=== PATIENT | male | born 1985 | race Caucasian/White ===

== ENCOUNTER 2018-06-02 01:15 | Emergency (ER) | payer BC, SELFPAY ==
[2018-06-02 01:17] VITALS: BP 160/106; PULSE 107; RESP 18; TEMP 37.5; O2SAT 98; BMI 35.3
[2018-06-02] MEDS: Acetaminophen 500 MG Tablet 1000 MG PO (02:26)
--- NOTE | 2018-06-02 02:28 | ED.VISSUMM ---
- ER Visit Summary Date of Service: 06/02/18 Chief Complaint: Sore throat History of Present Illness: The patient is a 33 M presenting with sore throat, body aches. This started earlier today. He has tried NyQuil, Tylenol at home. He complains of painful swallowing but no difficulty swallowing. He complains of diffuse body aches. He has had a subjective fever. He has nausea with no vomiting. He denies abdominal pain. He did not receive a flu shot this year. No sick contacts. Physical Examination: Vitals are stable. Temperature 99.5 Alert no acute distress. HEENT exam pharyngeal erythema with no exudate. Uvula is midline. Neck is supple. No meningismus Lungs are clear and equal bilaterally. Heart is regular and tachycardic Abdomen is soft nontender nondistended. No rebound or guarding Extremities are unremarkable. Skin is warm and dry. No rash Remainder of exam is unremarkable. Emergency Department Course and Treatment: Patient is given IV fluids, Toradol, Zofran. He is given Tylenol and Decadron. Rapid strep is positive. Influenza negative. Patient was given Bicillin IM. On reevaluation patient is feeling improved. He is requesting discharge. Advised to follow-up with Dr. Dee [facility] for no doc. Advised return to ED for worsening complaints. Disposition: Discharge home Impression: Strep pharyngitis This note was generated with [employer] dictation software. It may contain incorrect words, spelling, and punctuation that were not noted in review of the chart prior to signing ED Disposition - Plan for ED Patient: Chief Complaint: Sore Throat Instructions: ED Strep Pharyngitis Conf Referrals: Ashley Dee DO [STAFF PHYSICIAN] -
[2018-06-02] MEDS: 0.9% Normal Saline 1,000 ML 1000 ML IV ×2 (02:30)
[2018-06-02] MEDS: Ketorolac 30 MG/ML Syringe IV (02:30)
[2018-06-02] MEDS: Ondansetron 4 MG/2 ML Vial IV (02:31)
--- NOTE | 2018-06-02 02:31 | ED.DCSUM_ITS ---
- ER Visit Summary Date of Service: 06/02/18 Chief Complaint: Sore throat History of Present Illness: The patient is a 33 M presenting with sore throat, body aches. This started earlier today. He has tried NyQuil, Tylenol at home. He complains of painful swallowing but no difficulty swallowing. He complains of diffuse body aches. He has had a subjective fever. He has nausea with no vomiting. He denies abdominal pain. He did not receive a flu shot this year. No sick contacts. Physical Examination: Vitals are stable. Temperature 99.5 Alert no acute distress. HEENT exam pharyngeal erythema with no exudate. Uvula is midline. Neck is supple. No meningismus Lungs are clear and equal bilaterally. Heart is regular and tachycardic Abdomen is soft nontender nondistended. No rebound or guarding Extremities are unremarkable. Skin is warm and dry. No rash Remainder of exam is unremarkable. Emergency Department Course and Treatment: Patient is given IV fluids, Toradol, Zofran. He is given Tylenol and Decadron. Rapid strep is positive. Influenza negative. Patient was given Bicillin IM. On reevaluation patient is feeling improved. He is requesting discharge. Advised to follow-up with Dr. Dee [employer] [facility] for no doc. Advised return to ED for worsening complaints. Disposition: Discharge home Impression: Strep pharyngitis This note was generated with [employer] dictation software. It may contain incorrect words, spelling, and punctuation that were not noted in review of the chart prior to signing ED Disposition - Plan for ED Patient: Chief Complaint: Sore Throat Instructions: ED Strep Pharyngitis Conf Referrals: Ashley Dee DO [STAFF PHYSICIAN] -
[2018-06-02] MEDS: Penicillin G Benzathine 1.2 MU/2 ML Syringe IM (02:55)
[2018-06-02 03:15] VITALS: BP 131/75; PULSE 102; RESP 18; TEMP 37.3; O2SAT 94
--- NOTE | 2018-06-02 03:35 | ED.DEP ---
ED Disposition - Plan for ED Patient: Chief Complaint: Sore Throat Instructions: ED Strep Pharyngitis Conf Referrals: Ashley Dee DO [STAFF PHYSICIAN] -
[2018-06-02 03:54] VITALS: BP 145/88; PULSE 104; RESP 18; O2SAT 95
== END 2018-06-02 03:55 | disposition home or self-care (01) ==
LOC: ED 02:13
PROVIDERS: Emergency Provider Emergency Medicine
DX: J02.0 Streptococcal pharyngitis (principal); R11.0 Nausea; R00.0 Tachycardia, unspecified; Z72.0 Tobacco use; Z79.899 Other long term (current) drug therapy
CPT/HCPCS: 87804; 87880; 96361; 96372; 96374; 96375; 99283; J7030; A4216; J2405

== ENCOUNTER 2018-11-04 16:31 | Inpatient (IN) | payer BC, SELFPAY ==
[2018-11-04] VITALS (7 sets, daily range): BP systolic 143–167; BP diastolic 92–112; PULSE 101–120; RESP 18–20; TEMP 37.3–38.3; O2SAT 94–99; BMI 35.2; BMI 35.6
[2018-11-04] MEDS: 0.9% Normal Saline 1,000 ML 999 ML IV (17:47)
[2018-11-04] MEDS: LORazepam 2 MG/ML Syringe 1 MG IV (17:47)
[2018-11-04 17:54] LABS: Absolute Lymphocyte Count 1.88 X10^3/ul (0.83-4.51); Absolute Neutrophil Count 5.8 X10^3/uL (2.0-7.7); Basophil# 0.02 X10^3/uL; Basophil% 0.2 % (0-1); Eosinophil# 0.02 X10^3/uL; Eosinophils% 0.2 % (0-5); Hematocrit 48.5 % (40-54); Hemoglobin 16.6 g/dl (13.0-16.5); Lymphocyte # 1.88 X10^3/ul (4.0); Lymphocyte % 21.8 % (19-41); Mean Corp Hgb Conc 34.2 g/gl (32-36); Mean Corpuscular Hgb 30.9 pg (27.0-32.0); Mean Corpuscular Volume 90.3 fL (80-94); Mean Platelet Vol. 10.3 fl (6.2-12.0); Monocyte# 0.85 X10^3/uL; Monocyte% 9.9 % (0-10); Neutrophil # 5.83 X10^3/uL (2.7-7.7); Neutrophil % 67.7 % (47-70); Platelet Count 229 K/mm3 (150-450); RBC Distribution Width CV 12.5 % (11.6-14.6); Red Blood Count 5.37 M/mm3 (4.6-6.2); White Blood Count 8.6 K/mm3 (4.4-11.0)
[2018-11-04 17:55] LABS: Lyme Ab Screen Interpretation REF LAB
[2018-11-04 17:57] LABS: POSITIVE COUNT NO; POSITIVE DIFFERENTIAL NO; POSITIVE MORPHOLOGY NO
[2018-11-04 18:03] LABS: Erythrocyte Sedimentation Rate 10 mm/hr (0-15)
[2018-11-04 18:08] LABS: Anion Gap 6 (5-15); BUN 14 mg/dL (7-18); BUN/Creat Ratio 14.2 RATIO (10-20); Calcium,Total 8.9 mg/dL (8.5-10.1); Chloride 105 mmol/L (98-107); Creatinine, Serum 0.98 mg/dL (0.70-1.30); EST Glomerular Filtration Rate 92 mL/min (>60); Est Glom Filt Rate - Afr Amer 111 mL/min (>60); Estimated Creatinine Clearance 105.21 ml/min; Glucose 85 mg/dL (74-106); Potassium 3.9 mmol/L (3.5-5.1); Sodium Level 139 mmol/L (136-145)
[2018-11-04 18:17] LABS: Bacteria 0 SEEN /hpf (None Seen); Color, Urine Yellow (Yellow); Glucose, Dipstick Normal (Normal); Ketone-Dipstick Negative (Negative); Leukocyte Esterase-Dipstick Negative /ul (Negative); Mucous, Urine 0 SEEN /hpf (<or=2+); Nitrite-Dipstick Negative (Negative); Occult Blood-Urine 25 /ul (Negative); Protein-Dipstick 15 mg/dl (Negative); Squamous Epithelial Cells - UA 0 SEEN /hpf (0-5); Urine Bilirubin Dipstick Negative (Negative); Urine Clarity Clear (Clear); Urine Urobilinogen Normal (Normal); White Blood Cells 0 SEEN /hpf (0-5)
[2018-11-04] MEDS: Morphine 4 MG/ML Syringe IV ×2 (18:21→21:11)
[2018-11-04 18:36] LABS: Red Blood Cells-Urine 0-5 SEEN /hpf (0-5)
[2018-11-04] MEDS: Acetaminophen 500 MG Tablet 1000 MG PO (19:35)
[2018-11-04] MEDS: Acyclovir 700 MG in Dextrose 5% 250 ML 264.1 MG IV (19:39)
--- NOTE | 2018-11-04 20:18 | PCM.HP.STD ---
Problem List (1) Sepsis Status: Acute (2) Meningitis Status: Suspected (3) Lyme disease Status: Suspected History of Present Illness Date of Admission: 11/04/18 Chief Complaint: Diffuse body pain The patient is a 33 year old M with a significant history of anxiety disorder who presents with diffuse body pain and unable to move because of weakness. He describes his pain as vise-like. Further he has a rash on his left arm and diffuse rash around his neck and upper trunk.. Reportedly he was bitten by 2 ticks 2 weeks ago but he thinks that the tick did not stay on him for more than 24 hours. Further patient reports a lump-like feeling and pain in his sternum reportedly he had a fever of about 101 at home. He has a headache. At the emergency department lumbar puncture was attempted at 2 times without success. Patient was empirically started on vancomycin and ceftriaxone for probable meningitis. Past Medical History Medical History: Medical History (Last Updated 11/05/18 @ 04:36 by Smooth Slaughter MD) Denies any medical history (Acute) Allergies No Known Allergies Allergy (Verified 11/04/18 16:33) Home Medications: Ambulatory Orders Medication Instructions Recorded ALPRAZolam [Xanax] 1 mg PO TID PRN PRN 03/25/13 Surgical History: appendectomy, herniorrhaphy Smoking Status: Former smoker Alcohol: Occasional Review of Systems Constitutional: Reports: Fever, Night Sweats, Malaise, Weakness, Fatigue. Denies: Weight Change HEENT: Reports: Head Aches. Denies: Sinus Congestion, Sinus Drainage Cardiovascular: Denies: Chest Pain, Palpitations Respiratory: Denies: Cough, Shortness of breath at rest, Sputum production Gastrointestinal: Denies: Abdominal Pain, Nausea, Vomiting Genitourinary: Denies: Dysuria Musculoskeletal: Reports: Arm Pain, Back Pain, Leg Pain, Neck Pain. Denies: Joint Pain, Joint Tenderness Skin: Denies: Rash, Wounds Neurological: Denies: Numbness, Tingling, Focal weakness Psychiatric: Denies: Anxiety, Depression, Homicidal Ideations, Suicidal Ideations Hematologic/ Lymphatic: Denies: Easy Bruising, Easy Bleeding VTE Information - Inpt Only VTE Present on Admission: No VTE Mechan Device Prophylaxis: SCD's VTE Pharm Prophylaxis ordered?: No Patient Problems: Active and Suspected Problems Sepsis (Acute) Meningitis (Suspected) Lyme disease (Suspected) - Physical Exam General: Alert, Oriented x3, Cooperative HEENT: Atraumatic, PERRLA, EOMI, Normocephalic Neck: Supple, No JVD, Negative Carotid Bruits Lungs: Clear to auscultation, Normal air movement Cardiovascular: No murmurs, Tachycardic Abdomen: Bowel Sounds Present, Soft, Non Tender Extremities: No edema, Capillary Refill Less than 3 Seconds Skin: No rashes, No breakdown, - - Petechial rash on upper chest and neck; erythematous patch on left arm Musculoskeletal: No Tenderness to Palpation of Joints or Extremities Neurological: Cranial nerves II-XII grossly intact, - - Brudzinski and Kernig sign was negative. Psych/Mental Status: Normal Affect, Appropriate Vital Signs Temp Pulse Resp BP Pulse Ox 100.2 F H 113 H 20 H 167/112 H 98 11/04/18 19:27 11/04/18 19:27 11/04/18 19:27 11/04/18 19:27 11/04/18 19:27 Oxygen Delivery Method Room Air Weight: 108 kg Body Mass Index (BMI) 35.2 Microbiology Past 72 Hours 11/04/18 17:26 Influenza Types A,B Direct FA (LESLEY) - Final Mucosa - Nasopharyngeal Laboratory Tests Past 24 Hrs 11/04/18 11/04/18 11/04/18 17:20 17:26 17:26 WBC 8.6 RBC 5.37 Hgb 16.6 H Hct 48.5 MCV 90.3 MCH 30.9 MCHC 34.2 RDW 12.5 RDW Differential 41.0 Plt Count 229 MPV 10.3 Immature Gran % (Auto) 0.200 Neut % (Auto) 67.7 Lymph % (Auto) 21.8 Loving % (Auto) 9.9 Eos % (Auto) 0.2 Baso % (Auto) 0.2 Absolute Neuts (auto) 5.8 Absolute Lymphs (auto) 1.88 Total Counted Not Reportable ESR 10 Sodium 139 Potassium 3.9 Chloride 105 Carbon Dioxide 28.0 Anion Gap 6 BUN 14 Creatinine 0.98 Estim Creat Clear Calc 105.21 Est GFR (MDRD) Af Amer 111 Est GFR (MDRD) Non-Af 92 BUN/Creatinine Ratio 14.2 Glucose 85 Lactic Acid Calcium 8.9 C-React Prot Ext Range 86.30 H Urine Color Yellow Urine Clarity Clear Urine pH 7.0 Ur Specific Chappells 1.010 Urine Protein 15 H Urine Glucose (UA) Normal Urine Ketones Negative Urine Occult Blood 25 H Urine Nitrite Negative Urine Bilirubin Negative Urine Urobilinogen Normal Ur Leukocyte Esterase Negative Urine RBC 0-5 SEEN Urine WBC 0 SEEN Ur Squamous Epith Cells 0 SEEN Urine Bacteria 0 SEEN Urine Mucus 0 SEEN Lyme Total Antibody Lyme Disease Interpret 11/04/18 11/04/18 17:26 17:26 WBC RBC Hgb Hct MCV MCH MCHC RDW RDW Differential Plt Count MPV Immature Gran % (Auto) Neut % (Auto) Lymph % (Auto) Loving % (Auto) Eos % (Auto) Baso % (Auto) Absolute Neuts (auto) Absolute Lymphs (auto) Total Counted ESR Sodium Potassium Chloride Carbon Dioxide Anion Gap BUN Creatinine Estim Creat Clear Calc Est GFR (MDRD) Af Amer Est GFR (MDRD) Non-Af BUN/Creatinine Ratio Glucose Lactic Acid 1.0 Calcium C-React Prot Ext Range Urine Color Urine Clarity Urine pH Ur Specific Chappells Urine Protein Urine Glucose (UA) Urine Ketones Urine Occult Blood Urine Nitrite Urine Bilirubin Urine Urobilinogen Ur Leukocyte Esterase Urine RBC Urine WBC Ur Squamous Epith Cells Urine Bacteria Urine Mucus Lyme Total Antibody Pending Lyme Disease Interpret Pending Assessment/Plan All Active Problems Sepsis (Acute) The patient is a 33 year old M with a significant history of anxiety disorder who presents with diffuse body pain including neck pain; and unable to move because of weakness; fever; found to have tachycardia and a fever of 101.9 at the emergency department concern for probable meningitis or Lyme disease. Sepsis SIRS criteria: Tachycardia; fever of 100.9 at the hospital and tachypnea. Infection: Problem meningitis or Lyme disease Lactic acid unremarkable Blood culture x2 and urine culture ordered from the ED. Influenza screen unremarkable. Respiratory pathogen panel ordered. Probable Meningitis Fluoroscopic lumbar puncture ordered; CSF test for HSV; Entero-viruses; West Nile viral varicella zoster; Lyme disease; CSF culture; CSF Gram stain; csf Glucose and protein ordered ordered ordered. Vancomycin and Ceftriaxone was ordered in the emergency department; continue Acyclovir was also started from the emergency department; continued. IV fluids to prevent crystal nephropathy. Add dexamethasone Head CT unremarkable Tylenol for headache Infectious disease consult Probable Lyme disease Ceftriaxone can be effective for Lyme disease but will add Doxycycline which is first-line. DVT prophylaxis low risk SCD Code Visit Inpatient E&M: 65119 Init Hosp L3
--- NOTE | 2018-11-04 20:44 | ED.VISSUMM ---
- ER Visit Summary Date of Service: 11/04/18 Chief Complaint: Pain History of Present Illness: The patient is a 33 M who was referred to the ED by his family doctor. The patient has had 3 days of increasing neck pain, bilateral shoulder pain, lower back and bilateral leg pain. He also has a forearm rash on the left side as well as fevers. He has tried [id number] medicines with minimal relief. Patient reports a recent tick bite, 2 weeks ago. He believes the bite was for less than 24 hours. Also reports multiple hornet stings yesterday. Denies travel or sick contacts. Denies any immune compromise. Denies any respiratory symptoms or GI symptoms. Denies urinary symptoms. Physical Examination: Heart rate 101. Afebrile. Blood pressure 160/103. Patient appears very uncomfortable. Rolling around in the bed and rubbing his legs. Moving his neck freely. Cranial nerves grossly intact. HEENT exam unremarkable. Skin normal in color. Heart tachycardic but regular. Lungs clear. Abdomen soft. Patient has an erythematous patch about the size of his palm on his left forearm. No target lesions. No other abnormal skin findings. Test Results: CBC normal. BMP normal. Urinalysis unremarkable. Lactate normal. Influenza test negative. ESR 10 and CRP 86. Blood cultures pending. Lyme testing pending. Emergency Department Course and Treatment: Blood work and testing as above. Patient treated with fluids and then morphine for pain and Tylenol for fever. Patient gave consent for lumbar puncture. Risks such as bleeding, infection, and headache discussed. Patient was prepared and draped in sterile fashion. I did palpate the spinous process at L3-L4. Lidocaine infiltrated. Attempted to pass the needle. Attempted twice. Unsuccessful each time. Patient was having a lot of pain and further attempts were discontinued. It was too late in the day to order fluoroscopy LP. Patient was treated with vancomycin, Rocephin, acyclovir empirically. Patient did have low-grade fevers and tachycardia. He does meet sepsis criteria. He is not in shock. We will continue to monitor. The hospitalist was contacted for admission for further care. Treatment Plan: As above Disposition: Admission Impression: 1. Myalgias 2. Back pain 3. Fevers This note was generated with [employer] software. It may contain incorrect words, spelling, and punctuation that were not noted in review of the chart prior to signing ED Disposition - Plan for ED Patient: Referrals: Wagner Temple MD [Primary Care Provider] -
--- NOTE | 2018-11-04 21:07 | CT_ITS ---
STUDY: CT BRAIN WITHOUT CONTRAST REASON FOR EXAM: Male, 33 years old. Headache and fever for 3 days, possible meningitis RADIATION DOSAGE (If Supplied By Facility): CTDIvol = ( 44.99 ) mGy, DLP = ( 846.73 ) mGycm TECHNIQUE: Transaxial CT imaging of the brain was performed without administration of intravenous contrast material. Individualized dose optimization techniques were used for this CT. COMPARISON: No relevant priors. FINDINGS: Normal soft tissue structures. Normal calvarium. Normal size ventricles and extra-axial spaces for the patient's age. Normal white matter tracts of the cerebral hemispheres. Normal basal ganglia and thalami. Normal brainstem. Normal cerebellum. There is no intracranial hemorrhage. There are no findings of an acute ischemic infarction. Cysts in both maxillary sinuses. CT/Brain/Head without Contrast IMPRESSION: No CT evidence of acute brain pathology. Electronically Signed: Wagner Kramer MD at 21:44 EDT Tel , Service support ,
[2018-11-04] MEDS: oxyCODONE 5 MG Tablet PO (23:23)
[2018-11-04] MEDS: dexAMETHasone 4 MG Tablet 16 MG PO (23:23)
[2018-11-04] MEDS: 0.9% Normal Saline 1,000 ML 100 ML IV (23:45)
[2018-11-05] VITALS (11 sets, daily range): BP systolic 118–155; BP diastolic 73–77; PULSE 70–113; RESP 14–18; TEMP 36.5–38.8; O2SAT 92–98
[2018-11-05] MEDS: Ondansetron 4 MG/2 ML Vial IV (00:56)
[2018-11-05] MEDS: Morphine 2 MG/ML Syringe IV ×3 (00:56→08:28)
--- NOTE | 2018-11-05 02:27 | PCM.RX.CS ---
Consult Pharmacy has been consulted to manage selected antiobiotic: Vancomycin Type of Consult: New start Suspected Infection: Sepsis Prior Doses of Antibiotics Received/Current Regimen: Medications Vancomycin HCl 1,250 mg/ (Sodium Chloride) 275 mls @ 167 mls/hr IV Q8H ADOLPH Discontinued Medications Vancomycin HCl 2,000 mg/ (Sodium Chloride) 540 mls @ 250 mls/hr IV X1 ONE Stop: 11/04/18 20:39 Last Admin: 11/04/18 21:02 Dose: 250 mls/hr Labs: Sodium 139 mmol/L (136-145) 11/04/18 17:26 Potassium 3.9 mmol/L (3.5-5.1) 11/04/18 17:26 Chloride 105 mmol/L (98-107) 11/04/18 17:26 Carbon Dioxide 28.0 mmol/L (21.0-32.0) 11/04/18 17:26 Anion Gap 6 (5-15) 11/04/18 17:26 BUN 14 mg/dL (7-18) 11/04/18 17:26 Creatinine 0.98 mg/dL (0.70-1.30) 11/04/18 17:26 Est GFR (MDRD) Af Amer 111 mL/min (>60) 11/04/18 17:26 Est GFR (MDRD) Non-Af 92 mL/min (>60) 11/04/18 17:26 BUN/Creatinine Ratio 14.2 RATIO (10-20) 11/04/18 17:26 Glucose 85 mg/dL (74-106) 11/04/18 17:26 Microbiology: Microbiology 11/04/18 17:26 Mucosa - Nasopharyngeal Influenza Types A,B Direct FA (LESLEY) - Final Weight used for dosin.3 kg Estimated Creatinine Clearance: 105 Goal Trough: 15-20 mcg/mL Pharmacy Plan for Drug Dosing: Pharmacy Service will continue to monitor and adjust dosing as required. Follow-Up Labs: Trough Vancomycin Labs to be done on [date and time ordered]: 11/05/18 @2029
[2018-11-05] MEDS: Acetaminophen 325 MG Tablet 650 MG PO ×2 (03:29→09:28)
[2018-11-05 05:25] LABS: International Normalized Ratio 1.1; Prothrombin Time (Protime)PT. 14.1 SECONDS (11.7-14.9)
[2018-11-05 05:36] LABS: ALB/GLOB Ratio 0.7 RATIO (0.9-2.4); AST(SGOT) 23 U/L (15-37); Alanine Aminotransfer ALT/SGPT 46 U/L (16-61); Albumin, Serum 3.3 g/dL (3.2-5.0); Alkaline Phosphatase 114 U/L (45-117); Anion Gap 8 (5-15); BUN 10 mg/dL (7-18); BUN/Creat Ratio 10.9 RATIO (10-20); Calcium,Total 8.3 mg/dL (8.5-10.1); Chloride 103 mmol/L (98-107); Creatinine, Serum 0.92 mg/dL (0.70-1.30); EST Glomerular Filtration Rate 99 mL/min (>60); Est Glom Filt Rate - Afr Amer 120 mL/min (>60); Estimated Creatinine Clearance 112.07 ml/min; Globulin 4.6 g/dL (2.2-4.2); Glucose 151 mg/dL (74-106); Potassium 4.1 mmol/L (3.5-5.1); Protein, Total 7.9 g/dL (6.4-8.2); Sodium Level 137 mmol/L (136-145)
[2018-11-05] MEDS: dexAMETHasone 4 MG Tablet 16 MG PO ×4 (06:35→23:04)
[2018-11-05] MEDS: oxyCODONE 5 MG Tablet PO (06:41)
--- NOTE | 2018-11-05 08:00 | RAD_ITS ---
PROCEDURE: Fluoroscopic guided Lumbar Puncture. DATE: November 05, 2018. CLINICAL INDICATION: Possible meningitis. PHYSICIAN: Martín Barrera M.D. MEDICATIONS: 1% lidocaine administered subcutaneously for local anesthesia. ACCESS SITE: Lower posterior back. NEEDLE: 22-gauge spinal needle. SPECIMEN: Approximately 13 mL clear]CSF fluid. FLUOROSCOPY TIME (if supplied): (0:19) minutes/seconds COMPLICATIONS: None immediate. The risks, benefits, and alternatives to the procedure were explained to the patient. The specific risks of bleeding, infection, and neurovascular injury were detailed and accepted. Witnessed informed consent was obtained. The patient was placed on the fluoroscopic table in the prone position. The level for needle entry was determined and marked. The overlying skin was cleaned and prepped in the usual sterile fashion. 2% lidocaine was administered subcutaneously for local anesthesia. Under fluoroscopic guidance a 22-gauge spinal needle was advanced. The thecal sac was entered at the L3- L4 vertebral level. The inner stylet was removed. There was spontaneous flow of clear CSF fluid. The patient was placed in a reversed Trendelenburg position. Approximately 13 mL of cerebrospinal fluid was collected using gravity. The specimen was collected and submitted to the laboratory for further evaluation. The needle was withdrawn,. Hemostasis was achieved and a sterile dressing placed. The patient tolerated the procedure well without any immediate complications. The patient was placed supine with head elevated and returned to the floor in stable condition. RAD/Fluoro Guided Lumbar Puncture IMPRESSION: Successful fluoroscopic-guided lumbar puncture. Electronically Signed: Martín Barrera, at 10:38 EDT , Service support ,
[2018-11-05 10:45] LABS: Glucose Spinal Fluid 88 mg/dL (40-75)
[2018-11-05 11:10] LABS: Body Fluid Mononuclear WBC # 0.002 10^3/uL; Body Fluid Mononuclear WBC % 66.7 %; Body Fluid Polynuclear WBC # 0.001 10^3/uL; Body Fluid Polynuclear WBC % 33.3 %; Total Cell Count CSF 0.003 10^3/uL; White Count, CSF 0.003 10^3/uL (0.000-0.005)
[2018-11-05 11:11] LABS: Appearance CSF (character) CLEAR (Clear); Auto B Fluid Analyzer BKGD Ct COUNTS W/IN LIMITS (W/IN LIMITS); CSF Color COLORLESS (Colorless); Tested Tube # 4
[2018-11-05 11:12] LABS: Body Fluid QC Type(s) BF1Q; RBC Count, Spinal Fluid 0 /mm-3 (None seen)
[2018-11-05] MEDS: Ketorolac 30 MG/ML Syringe IV (12:19)
--- NOTE | 2018-11-05 12:20 | CASEMGMT ---
Addendum entered by Lauren Ramírez 11/05/18 12:27: Assessment completed @ 1125. Original Note: RN CM BENEFITS SPECIALIST CM to room to meet with patient for initial transition planning/care coordination assessment. RN BEVERLY introduced self and role at [facility]. Pt voices understanding and consents to assessment at this time. Pt resting in bed. Pt is A/O at this time and answers all questions appropriately. Care providers, pharmacy, and demographics verified at this time. PCP: Windy Specialists: none Preferred Pharmacy: [facility] Insurance: [employer] Prescription Benefit: Yes Living Will/HPOA: States does not have LW or HCPOA . Provided information on advanced directives and given Social Service rac card. Made aware to ask for CM if he chooses to complete paperwork while @ [facility] or if he has any questions. Patient also informed, that, if he chooses, he can come back to [facility] and meet with a SW as an outpatient to complete health care advanced directives. Patient expresses understanding. LNOK: Mother, Sofia. Living Arrangements: Lives with his timmy. Independent. Transportation: Pt states drives self and states no transportation concerns at this time. Timmy can drive home on d/c. DME: Denies using any DME and denies needs. HHC/SNF: No history of either. CM to follow for any discharge planning/needs. Pt voices no further concerns/needs at this time. Advised pt to ask for CM if any further questions/concerns/needs arise. Voices understanding. PLAN: Home. Awaiting LP results. May need IV atb's on discharge. CM to follow for any discharge planning/needs. Julia LEWIS RN, CM
[2018-11-05] MEDS: Acetaminophen/Butalbital/Caffe 1 Tablet PO ×2 (13:31→17:36)
--- NOTE | 2018-11-05 13:34 | PN_ITS ---
<Robbie Landa - Last Filed: 11/05/18 13:29> Patient Problems: Active and Suspected Problems (Last Updated 11/05/18 @ 04:36 by Smooth Slaughter MD) Sepsis (Acute) Meningitis (Suspected) Lyme disease (Suspected) Denies any medical history (Acute) Subjective: Ongoing migraine with nausea and photophobia, yesterday was seeing flashes. Also with neck and back pain. These have started to improve since yesterday. Did have ticks recently, pulled them off in less than 24 hours, no target lesions noted. A small red rash is on the left arm, however this is where hornets stung him - 5x along arm, shoulder and face. No fever or chills. No vomiting, diarrhea, abdominal pain, dysuria, cough, SOB, CP. - Physical Exam General: Alert, Oriented x3, Cooperative HEENT: Atraumatic, PERRLA, EOMI, Normocephalic Neck: Supple, No JVD, Negative Carotid Bruits Lungs: Clear to auscultation, Normal air movement Cardiovascular: Regular rate, No murmurs Abdomen: Bowel Sounds Present, Soft, Non Tender Extremities: No edema, Capillary Refill Less than 3 Seconds Skin: No rashes, No breakdown Musculoskeletal: No Tenderness to Palpation of Joints or Extremities Neurological: Cranial nerves II-XII grossly intact Psych/Mental Status: Normal Affect, Appropriate, Alert and oriented to time, place, person, mood and affect Vital Signs Temp Pulse Resp BP Pulse Ox 97.7 F L 88 16 128/76 H 98 11/05/18 09:35 11/05/18 09:35 11/05/18 09:35 11/05/18 09:35 11/05/18 09:35 Oxygen Delivery Method Room Air Weight: 240 lb 15.444 oz Body Mass Index (BMI) 35.6 Intake and Output for Last 24 Hours 11/03/18 11/04/18 11/05/18 23:59 23:59 23:59 Intake Total 1492 / 1492 Output Total 500 / 500 Balance 992 / 992 Microbiology Past 72 Hours 11/05/18 10:02 Gram Stain - Final Csf, Spinal Fluid 11/04/18 17:26 Influenza Types A,B Direct FA (LESLEY) - Final Mucosa - Nasopharyngeal Laboratory Tests Past 24 Hrs 11/04/18 11/04/18 11/04/18 17:20 17:26 17:26 WBC 8.6 RBC 5.37 Hgb 16.6 H Hct 48.5 MCV 90.3 MCH 30.9 MCHC 34.2 RDW 12.5 RDW Differential 41.0 Plt Count 229 MPV 10.3 Immature Gran % (Auto) 0.200 Neut % (Auto) 67.7 Lymph % (Auto) 21.8 [place] % (Auto) 9.9 Eos % (Auto) 0.2 Baso % (Auto) 0.2 Absolute Neuts (auto) 5.8 Absolute Lymphs (auto) 1.88 Total Counted Not Reportable ESR 10 PT INR Sodium 139 Potassium 3.9 Chloride 105 Carbon Dioxide 28.0 Anion Gap 6 BUN 14 Creatinine 0.98 Estim Creat Clear Calc 105.21 Est GFR (MDRD) Af Amer 111 Est GFR (MDRD) Non-Af 92 BUN/Creatinine Ratio 14.2 Glucose 85 Lactic Acid Calcium 8.9 Total Bilirubin AST ALT Alkaline Phosphatase C-React Prot Ext Range 86.30 H Total Protein Albumin Globulin Albumin/Globulin Ratio Urine Color Yellow Urine Clarity Clear Urine pH 7.0 Ur Specific [place] 1.010 Urine Protein 15 H Urine Glucose (UA) Normal Urine Ketones Negative Urine Occult Blood 25 H Urine Nitrite Negative Urine Bilirubin Negative Urine Urobilinogen Normal Ur Leukocyte Esterase Negative Urine RBC 0-5 SEEN Urine WBC 0 SEEN Ur Squamous Epith Cells 0 SEEN Urine Bacteria 0 SEEN Urine Mucus 0 SEEN Fld Polynuclear WBCs # Fld Polynuclear WBCs % Fluid Mononuclear WBCs Fld Mononuclear WBCs % CSF Appearance CSF Color CSF WBC CSF RBC CSF Cell Count Tube # CSF Total Cell Counted CSF Comment CSF Glucose CSF Total Protein CSF VZV DNA (PCR) Lyme Total Antibody Lyme Disease Interpret [place] RNA (RT-PCR) [place] Interp Enterovirus RNA (PCR) HSV I DNA PCR HSV II DNA PCR 11/04/18 11/04/18 11/05/18 17:26 17:26 05:00 WBC RBC Hgb Hct MCV MCH MCHC RDW RDW Differential Plt Count MPV Immature Gran % (Auto) Neut % (Auto) Lymph % (Auto) [place] % (Auto) Eos % (Auto) Baso % (Auto) Absolute Neuts (auto) Absolute Lymphs (auto) Total Counted ESR PT INR Sodium 137 Potassium 4.1 Chloride 103 Carbon Dioxide 26.0 Anion Gap 8 BUN 10 Creatinine 0.92 Estim Creat Clear Calc 112.07 Est GFR (MDRD) Af Amer 120 Est GFR (MDRD) Non-Af 99 BUN/Creatinine Ratio 10.9 Glucose 151 H Lactic Acid 1.0 Calcium 8.3 L Total Bilirubin 0.40 AST 23 ALT 46 Alkaline Phosphatase 114 C-React Prot Ext Range Total Protein 7.9 Albumin 3.3 Globulin 4.6 H Albumin/Globulin Ratio 0.7 L Urine Color Urine Clarity Urine pH Ur Specific [place] Urine Protein Urine Glucose (UA) Urine Ketones Urine Occult Blood Urine Nitrite Urine Bilirubin Urine Urobilinogen Ur Leukocyte Esterase Urine RBC Urine WBC Ur Squamous Epith Cells Urine Bacteria Urine Mucus Fld Polynuclear WBCs # Fld Polynuclear WBCs % Fluid Mononuclear WBCs Fld Mononuclear WBCs % CSF Appearance CSF Color CSF WBC CSF RBC CSF Cell Count Tube # CSF Total Cell Counted CSF Comment CSF Glucose CSF Total Protein CSF VZV DNA (PCR) Lyme Total Antibody Pending Lyme Disease Interpret Pending [place] RNA (RT-PCR) [place] Interp Enterovirus RNA (PCR) HSV I DNA PCR HSV II DNA PCR 11/05/18 11/05/18 11/05/18 05:00 10:02 10:02 WBC RBC Hgb Hct MCV MCH MCHC RDW RDW Differential Plt Count MPV Immature Gran % (Auto) Neut % (Auto) Lymph % (Auto) [place] % (Auto) Eos % (Auto) Baso % (Auto) Absolute Neuts (auto) Absolute Lymphs (auto) Total Counted ESR PT 14.1 INR 1.1 Sodium Potassium Chloride Carbon Dioxide Anion Gap BUN Creatinine Estim Creat Clear Calc Est GFR (MDRD) Af Amer Est GFR (MDRD) Non-Af BUN/Creatinine Ratio Glucose Lactic Acid Calcium Total Bilirubin AST ALT Alkaline Phosphatase C-React Prot Ext Range Total Protein Albumin Globulin Albumin/Globulin Ratio Urine Color Urine Clarity Urine pH Ur Specific [place] Urine Protein Urine Glucose (UA) Urine Ketones Urine Occult Blood Urine Nitrite Urine Bilirubin Urine Urobilinogen Ur Leukocyte Esterase Urine RBC Urine WBC Ur Squamous Epith Cells Urine Bacteria Urine Mucus Fld Polynuclear WBCs # Fld Polynuclear WBCs % Fluid Mononuclear WBCs Fld Mononuclear WBCs % CSF Appearance CSF Color CSF WBC CSF RBC CSF Cell Count Tube # CSF Total Cell Counted CSF Comment CSF Glucose 88 H CSF Total Protein CSF VZV DNA (PCR) Pending Lyme Total Antibody Lyme Disease Interpret [place] RNA (RT-PCR) Pending [place] Interp Pending Enterovirus RNA (PCR) Pending HSV I DNA PCR Pending HSV II DNA PCR Pending 11/05/18 11/05/18 10:02 10:02 WBC RBC Hgb Hct MCV MCH MCHC RDW RDW Differential Plt Count MPV Immature Gran % (Auto) Neut % (Auto) Lymph % (Auto) [place] % (Auto) Eos % (Auto) Baso % (Auto) Absolute Neuts (auto) Absolute Lymphs (auto) Total Counted ESR PT INR Sodium Potassium Chloride Carbon Dioxide Anion Gap BUN Creatinine Estim Creat Clear Calc Est GFR (MDRD) Af Amer Est GFR (MDRD) Non-Af BUN/Creatinine Ratio Glucose Lactic Acid Calcium Total Bilirubin AST ALT Alkaline Phosphatase C-React Prot Ext Range Total Protein Albumin Globulin Albumin/Globulin Ratio Urine Color Urine Clarity Urine pH Ur Specific [place] Urine Protein Urine Glucose (UA) Urine Ketones Urine Occult Blood Urine Nitrite Urine Bilirubin Urine Urobilinogen Ur Leukocyte Esterase Urine RBC Urine WBC Ur Squamous Epith Cells Urine Bacteria Urine Mucus Fld Polynuclear WBCs # 0.001 Fld Polynuclear WBCs % 33.3 Fluid Mononuclear WBCs 0.002 Fld Mononuclear WBCs % 66.7 CSF Appearance CLEAR CSF Color COLORLESS CSF WBC 0.003 CSF RBC 0 CSF Cell Count Tube # 4 CSF Total Cell Counted 0.003 CSF Comment May follow CSF Glucose CSF Total Protein 36.0 CSF VZV DNA (PCR) Lyme Total Antibody Lyme Disease Interpret [place] RNA (RT-PCR) [place] Interp Enterovirus RNA (PCR) HSV I DNA PCR HSV II DNA PCR Medical Necessity - Tobacco Use Smoking Status: Former smoker Assessment/Plan All Active Problems (Last Updated 11/05/18 @ 04:36 by Smooth Slaughter MD) Sepsis (Acute) Denies any medical history (Acute) 1. Sepsis 2/2 presumed meningitis - fever resolved. No leukocytosis. Headache is ongoing. Describes it as a migraine which he does have a hx of. LP shows somewhat elevated glucose, VZV is pending. [place] titers pending. HSB/eterovirus/west nile pending. Doubt lyme dz - no erythema migrans and ticks not attached 48-72 hours:: <24 hrs. Continue empiric doxy, rocephin, vanco, acyclovir. Follow ID recommendations. CRP 86.3, ESR normal. 2. Migraine hx - possibly causing symptoms above. + flashers, photophobia, nausea, feels like prior migraines. Trial fioricet, continue toradol, decadron. 3. Anxiety - xanax prn 4. Obesity DVT ppx: early ambulation DC planning: pending ID rec This patient was seen by Robbie Landa PA-C under the supervision of Dr. Garcia. <Zohaib Garcia F - Last Filed: 11/05/18 16:04> - Physical Exam Vital Signs Temp Pulse Resp BP Pulse Ox 98.3 F 70 14 126/77 H 96 11/05/18 15:15 11/05/18 15:15 11/05/18 15:15 11/05/18 15:15 11/05/18 15:15 Oxygen Delivery Method Room Air Weight: 240 lb 15.444 oz Body Mass Index (BMI) 35.6 Intake and Output for Last 24 Hours 11/03/18 11/04/18 11/05/18 23:59 23:59 23:59 Intake Total 1492 / 1492 Output Total 500 / 500 Balance 992 / 992 Microbiology Past 72 Hours 11/05/18 10:02 Gram Stain - Final Csf, Spinal Fluid 11/04/18 17:26 Influenza Types A,B Direct FA (LESLEY) - Final Mucosa - Nasopharyngeal Laboratory Tests Past 24 Hrs 11/04/18 11/04/18 11/04/18 17:20 17:26 17:26 WBC 8.6 RBC 5.37 Hgb 16.6 H Hct 48.5 MCV 90.3 MCH 30.9 MCHC 34.2 RDW 12.5 RDW Differential 41.0 Plt Count 229 MPV 10.3 Immature Gran % (Auto) 0.200 Neut % (Auto) 67.7 Lymph % (Auto) 21.8 [place] % (Auto) 9.9 Eos % (Auto) 0.2 Baso % (Auto) 0.2 Absolute Neuts (auto) 5.8 Absolute Lymphs (auto) 1.88 Total Counted Not Reportable ESR 10 PT INR Sodium 139 Potassium 3.9 Chloride 105 Carbon Dioxide 28.0 Anion Gap 6 BUN 14 Creatinine 0.98 Estim Creat Clear Calc 105.21 Est GFR (MDRD) Af Amer 111 Est GFR (MDRD) Non-Af 92 BUN/Creatinine Ratio 14.2 Glucose 85 Lactic Acid Calcium 8.9 Total Bilirubin AST ALT Alkaline Phosphatase C-React Prot Ext Range 86.30 H Total Protein Albumin Globulin Albumin/Globulin Ratio Urine Color Yellow Urine Clarity Clear Urine pH 7.0 Ur Specific [place] 1.010 Urine Protein 15 H Urine Glucose (UA) Normal Urine Ketones Negative Urine Occult Blood 25 H Urine Nitrite Negative Urine Bilirubin Negative Urine Urobilinogen Normal Ur Leukocyte Esterase Negative Urine RBC 0-5 SEEN Urine WBC 0 SEEN Ur Squamous Epith Cells 0 SEEN Urine Bacteria 0 SEEN Urine Mucus 0 SEEN Fld Polynuclear WBCs # Fld Polynuclear WBCs % Fluid Mononuclear WBCs Fld Mononuclear WBCs % CSF Appearance CSF Color CSF WBC CSF RBC CSF Cell Count Tube # CSF Total Cell Counted CSF Comment CSF Glucose CSF Total Protein CSF VZV DNA (PCR) Lyme Total Antibody Lyme Disease Interpret [place] RNA (RT-PCR) [place] Interp Enterovirus RNA (PCR) HSV I DNA PCR HSV II DNA PCR 11/04/18 11/04/18 11/05/18 17:26 17:26 05:00 WBC RBC Hgb Hct MCV MCH MCHC RDW RDW Differential Plt Count MPV Immature Gran % (Auto) Neut % (Auto) Lymph % (Auto) [place] % (Auto) Eos % (Auto) Baso % (Auto) Absolute Neuts (auto) Absolute Lymphs (auto) Total Counted ESR PT INR Sodium 137 Potassium 4.1 Chloride 103 Carbon Dioxide 26.0 Anion Gap 8 BUN 10 Creatinine 0.92 Estim Creat Clear Calc 112.07 Est GFR (MDRD) Af Amer 120 Est GFR (MDRD) Non-Af 99 BUN/Creatinine Ratio 10.9 Glucose 151 H Lactic Acid 1.0 Calcium 8.3 L Total Bilirubin 0.40 AST 23 ALT 46 Alkaline Phosphatase 114 C-React Prot Ext Range Total Protein 7.9 Albumin 3.3 Globulin 4.6 H Albumin/Globulin Ratio 0.7 L Urine Color Urine Clarity Urine pH Ur Specific [place] Urine Protein Urine Glucose (UA) Urine Ketones Urine Occult Blood Urine Nitrite Urine Bilirubin Urine Urobilinogen Ur Leukocyte Esterase Urine RBC Urine WBC Ur Squamous Epith Cells Urine Bacteria Urine Mucus Fld Polynuclear WBCs # Fld Polynuclear WBCs % Fluid Mononuclear WBCs Fld Mononuclear WBCs % CSF Appearance CSF Color CSF WBC CSF RBC CSF Cell Count Tube # CSF Total Cell Counted CSF Comment CSF Glucose CSF Total Protein CSF VZV DNA (PCR) Lyme Total Antibody Pending Lyme Disease Interpret Pending [place] RNA (RT-PCR) [place] Interp Enterovirus RNA (PCR) HSV I DNA PCR HSV II DNA PCR 11/05/18 11/05/18 11/05/18 05:00 10:02 10:02 WBC RBC Hgb Hct MCV MCH MCHC RDW RDW Differential Plt Count MPV Immature Gran % (Auto) Neut % (Auto) Lymph % (Auto) [place] % (Auto) Eos % (Auto) Baso % (Auto) Absolute Neuts (auto) Absolute Lymphs (auto) Total Counted ESR PT 14.1 INR 1.1 Sodium Potassium Chloride Carbon Dioxide Anion Gap BUN Creatinine Estim Creat Clear Calc Est GFR (MDRD) Af Amer Est GFR (MDRD) Non-Af BUN/Creatinine Ratio Glucose Lactic Acid Calcium Total Bilirubin AST ALT Alkaline Phosphatase C-React Prot Ext Range Total Protein Albumin Globulin Albumin/Globulin Ratio Urine Color Urine Clarity Urine pH Ur Specific [place] Urine Protein Urine Glucose (UA) Urine Ketones Urine Occult Blood Urine Nitrite Urine Bilirubin Urine Urobilinogen Ur Leukocyte Esterase Urine RBC Urine WBC Ur Squamous Epith Cells Urine Bacteria Urine Mucus Fld Polynuclear WBCs # Fld Polynuclear WBCs % Fluid Mononuclear WBCs Fld Mononuclear WBCs % CSF Appearance CSF Color CSF WBC CSF RBC CSF Cell Count Tube # CSF Total Cell Counted CSF Comment CSF Glucose 88 H CSF Total Protein CSF VZV DNA (PCR) Pending Lyme Total Antibody Lyme Disease Interpret [place] RNA (RT-PCR) Pending [place] Interp Pending Enterovirus RNA (PCR) Pending HSV I DNA PCR Pending HSV II DNA PCR Pending 11/05/18 11/05/18 10:02 10:02 WBC RBC Hgb Hct MCV MCH MCHC RDW RDW Differential Plt Count MPV Immature Gran % (Auto) Neut % (Auto) Lymph % (Auto) [place] % (Auto) Eos % (Auto) Baso % (Auto) Absolute Neuts (auto) Absolute Lymphs (auto) Total Counted ESR PT INR Sodium Potassium Chloride Carbon Dioxide Anion Gap BUN Creatinine Estim Creat Clear Calc Est GFR (MDRD) Af Amer Est GFR (MDRD) Non-Af BUN/Creatinine Ratio Glucose Lactic Acid Calcium Total Bilirubin AST ALT Alkaline Phosphatase C-React Prot Ext Range Total Protein Albumin Globulin Albumin/Globulin Ratio Urine Color Urine Clarity Urine pH Ur Specific [place] Urine Protein Urine Glucose (UA) Urine Ketones Urine Occult Blood Urine Nitrite Urine Bilirubin Urine Urobilinogen Ur Leukocyte Esterase Urine RBC Urine WBC Ur Squamous Epith Cells Urine Bacteria Urine Mucus Fld Polynuclear WBCs # 0.001 Fld Polynuclear WBCs % 33.3 Fluid Mononuclear WBCs 0.002 Fld Mononuclear WBCs % 66.7 CSF Appearance CLEAR CSF Color COLORLESS CSF WBC 0.003 CSF RBC 0 CSF Cell Count Tube # 4 CSF Total Cell Counted 0.003 CSF Comment May follow CSF Glucose CSF Total Protein 36.0 CSF VZV DNA (PCR) Lyme Total Antibody Lyme Disease Interpret [place] RNA (RT-PCR) [place] Interp Enterovirus RNA (PCR) HSV I DNA PCR HSV II DNA PCR Code Visit Addendum: Dr. Garcia I personally examined the patient and reviewed the chart. I agree with the above. 33-year-old male with a history of to [place] about 3 weeks ago, presenting with a rash on his left forearm and then generalized joint pain and headaches and fatigue. He had an LP done today by radiology which was negative for meningitis therefore we can discontinue the Rocephin and the vancomycin as well as acyclovir. Infectious disease is consulted and I appreciate their assistance. Can likely transition to solely doxycycline for 10 to 14 days and can plan for discharge tomorrow if he is stable and the Mee comes back positive for Lyme disease. Inpatient E&M: 31986 Subs Hosp L2
[2018-11-05] MEDS: 0.9% Normal Saline 1,000 ML 100 ML IV (14:44)
--- NOTE | 2018-11-05 16:44 | PCM.HP.ID ---
Problem List (1) Lyme disease Status: Suspected Reason for Consult: sepsis Consulted by: Dr. Garica History of Present Illness: The patient is a 33 year old M with 2 ticks bites about 2-2.5 weeks ago after walking in [place]. Found them on RUE and abd. On 10/29, developed acute onset fever, fatigue, chills, intermittent headache, diffuse aches, and RLE paresthesias. Had circular rash on LUE. No cough or SOB, no congestion, no dysuria. Came here, had LP done, started on vanc, ceftriaxone, doxy, acyclovir. Full ROS performed and neg except as noted above. - Medical History Allergies/Adverse Reactions: Allergies No Known Allergies Allergy (Verified 11/04/18 16:33) Home Medications: Ambulatory Orders Medication Instructions Recorded ALPRAZolam [Xanax] 1 mg PO TID PRN PRN 03/25/13 - Social History SMOKING STATUS:: Former smoker Vital Signs Temp Pulse Resp BP Pulse Ox 98.3 F 70 14 126/77 H 96 11/05/18 15:15 11/05/18 15:15 11/05/18 15:15 11/05/18 15:15 11/05/18 15:15 Oxygen Delivery Method Room Air Weight: 109.3 kg Body Mass Index (BMI) 35.6 Microbiology Past 72 Hours 11/05/18 10:02 Gram Stain - Final Csf, Spinal Fluid 11/04/18 17:26 Influenza Types A,B Direct FA (LESLEY) - Final Mucosa - Nasopharyngeal Laboratory Tests Past 24 Hrs 11/04/18 11/04/18 11/04/18 17:20 17:26 17:26 WBC 8.6 RBC 5.37 Hgb 16.6 H Hct 48.5 MCV 90.3 MCH 30.9 MCHC 34.2 RDW 12.5 RDW Differential 41.0 Plt Count 229 MPV 10.3 Immature Gran % (Auto) 0.200 Neut % (Auto) 67.7 Lymph % (Auto) 21.8 [place] % (Auto) 9.9 Eos % (Auto) 0.2 Baso % (Auto) 0.2 Absolute Neuts (auto) 5.8 Absolute Lymphs (auto) 1.88 Total Counted Not Reportable ESR 10 PT INR Sodium 139 Potassium 3.9 Chloride 105 Carbon Dioxide 28.0 Anion Gap 6 BUN 14 Creatinine 0.98 Estim Creat Clear Calc 105.21 Est GFR (MDRD) Af Amer 111 Est GFR (MDRD) Non-Af 92 BUN/Creatinine Ratio 14.2 Glucose 85 Lactic Acid Calcium 8.9 Total Bilirubin AST ALT Alkaline Phosphatase C-React Prot Ext Range 86.30 H Total Protein Albumin Globulin Albumin/Globulin Ratio Urine Color Yellow Urine Clarity Clear Urine pH 7.0 Ur Specific [place] 1.010 Urine Protein 15 H Urine Glucose (UA) Normal Urine Ketones Negative Urine Occult Blood 25 H Urine Nitrite Negative Urine Bilirubin Negative Urine Urobilinogen Normal Ur Leukocyte Esterase Negative Urine RBC 0-5 SEEN Urine WBC 0 SEEN Ur Squamous Epith Cells 0 SEEN Urine Bacteria 0 SEEN Urine Mucus 0 SEEN Fld Polynuclear WBCs # Fld Polynuclear WBCs % Fluid Mononuclear WBCs Fld Mononuclear WBCs % CSF Appearance CSF Color CSF WBC CSF RBC CSF Cell Count Tube # CSF Total Cell Counted CSF Comment CSF Glucose CSF Total Protein CSF VZV DNA (PCR) Lyme Total Antibody Lyme Disease Interpret [place] RNA (RT-PCR) [place] Interp Enterovirus RNA (PCR) HSV I DNA PCR HSV II DNA PCR 11/04/18 11/04/18 11/05/18 17:26 17:26 05:00 WBC RBC Hgb Hct MCV MCH MCHC RDW RDW Differential Plt Count MPV Immature Gran % (Auto) Neut % (Auto) Lymph % (Auto) [place] % (Auto) Eos % (Auto) Baso % (Auto) Absolute Neuts (auto) Absolute Lymphs (auto) Total Counted ESR PT INR Sodium 137 Potassium 4.1 Chloride 103 Carbon Dioxide 26.0 Anion Gap 8 BUN 10 Creatinine 0.92 Estim Creat Clear Calc 112.07 Est GFR (MDRD) Af Amer 120 Est GFR (MDRD) Non-Af 99 BUN/Creatinine Ratio 10.9 Glucose 151 H Lactic Acid 1.0 Calcium 8.3 L Total Bilirubin 0.40 AST 23 ALT 46 Alkaline Phosphatase 114 C-React Prot Ext Range Total Protein 7.9 Albumin 3.3 Globulin 4.6 H Albumin/Globulin Ratio 0.7 L Urine Color Urine Clarity Urine pH Ur Specific [place] Urine Protein Urine Glucose (UA) Urine Ketones Urine Occult Blood Urine Nitrite Urine Bilirubin Urine Urobilinogen Ur Leukocyte Esterase Urine RBC Urine WBC Ur Squamous Epith Cells Urine Bacteria Urine Mucus Fld Polynuclear WBCs # Fld Polynuclear WBCs % Fluid Mononuclear WBCs Fld Mononuclear WBCs % CSF Appearance CSF Color CSF WBC CSF RBC CSF Cell Count Tube # CSF Total Cell Counted CSF Comment CSF Glucose CSF Total Protein CSF VZV DNA (PCR) Lyme Total Antibody Pending Lyme Disease Interpret Pending [place] RNA (RT-PCR) [place] Interp Enterovirus RNA (PCR) HSV I DNA PCR HSV II DNA PCR 11/05/18 11/05/18 11/05/18 05:00 10:02 10:02 WBC RBC Hgb Hct MCV MCH MCHC RDW RDW Differential Plt Count MPV Immature Gran % (Auto) Neut % (Auto) Lymph % (Auto) [place] % (Auto) Eos % (Auto) Baso % (Auto) Absolute Neuts (auto) Absolute Lymphs (auto) Total Counted ESR PT 14.1 INR 1.1 Sodium Potassium Chloride Carbon Dioxide Anion Gap BUN Creatinine Estim Creat Clear Calc Est GFR (MDRD) Af Amer Est GFR (MDRD) Non-Af BUN/Creatinine Ratio Glucose Lactic Acid Calcium Total Bilirubin AST ALT Alkaline Phosphatase C-React Prot Ext Range Total Protein Albumin Globulin Albumin/Globulin Ratio Urine Color Urine Clarity Urine pH Ur Specific [place] Urine Protein Urine Glucose (UA) Urine Ketones Urine Occult Blood Urine Nitrite Urine Bilirubin Urine Urobilinogen Ur Leukocyte Esterase Urine RBC Urine WBC Ur Squamous Epith Cells Urine Bacteria Urine Mucus Fld Polynuclear WBCs # Fld Polynuclear WBCs % Fluid Mononuclear WBCs Fld Mononuclear WBCs % CSF Appearance CSF Color CSF WBC CSF RBC CSF Cell Count Tube # CSF Total Cell Counted CSF Comment CSF Glucose 88 H CSF Total Protein CSF VZV DNA (PCR) Pending Lyme Total Antibody Lyme Disease Interpret [place] RNA (RT-PCR) Pending [place] Interp Pending Enterovirus RNA (PCR) Pending HSV I DNA PCR Pending HSV II DNA PCR Pending 11/05/18 11/05/18 10:02 10:02 WBC RBC Hgb Hct MCV MCH MCHC RDW RDW Differential Plt Count MPV Immature Gran % (Auto) Neut % (Auto) Lymph % (Auto) [place] % (Auto) Eos % (Auto) Baso % (Auto) Absolute Neuts (auto) Absolute Lymphs (auto) Total Counted ESR PT INR Sodium Potassium Chloride Carbon Dioxide Anion Gap BUN Creatinine Estim Creat Clear Calc Est GFR (MDRD) Af Amer Est GFR (MDRD) Non-Af BUN/Creatinine Ratio Glucose Lactic Acid Calcium Total Bilirubin AST ALT Alkaline Phosphatase C-React Prot Ext Range Total Protein Albumin Globulin Albumin/Globulin Ratio Urine Color Urine Clarity Urine pH Ur Specific [place] Urine Protein Urine Glucose (UA) Urine Ketones Urine Occult Blood Urine Nitrite Urine Bilirubin Urine Urobilinogen Ur Leukocyte Esterase Urine RBC Urine WBC Ur Squamous Epith Cells Urine Bacteria Urine Mucus Fld Polynuclear WBCs # 0.001 Fld Polynuclear WBCs % 33.3 Fluid Mononuclear WBCs 0.002 Fld Mononuclear WBCs % 66.7 CSF Appearance CLEAR CSF Color COLORLESS CSF WBC 0.003 CSF RBC 0 CSF Cell Count Tube # 4 CSF Total Cell Counted 0.003 CSF Comment May follow CSF Glucose CSF Total Protein 36.0 CSF VZV DNA (PCR) Lyme Total Antibody Lyme Disease Interpret [place] RNA (RT-PCR) [place] Interp Enterovirus RNA (PCR) HSV I DNA PCR HSV II DNA PCR - Other Studies Radiology: [] reviewed Other Studies: [] Route of nutrition/ use of supplements: [] Nutritional Intake: [] IV Site: [] [place] Catheter: [] - Physical Exam General: Alert, Oriented x3, Cooperative, No apparent distress HEENT: Atraumatic, PERRLA, EOMI Neck: Supple, No Nodes Lungs: Clear to auscultation, Normal air movement Cardiovascular: Regular rate, Regular Rhythm Abdomen: Soft, Non Tender, Non-Distended Extremities: No edema Skin: - - rash on LUE IV Site: Peripheral, without redness Musculoskeletal: No Tenderness to Palpation of Joints or Extremities Neurological: Cranial nerves II-XII grossly intact - Assessment/Plan Antibiotics: [] Assessment/Plan: [] Active and Suspected Problems (Last Updated 11/05/18 @ 04:36 by Smooth Slaughter MD) Sepsis (Acute) Meningitis (Suspected) Lyme disease (Suspected) Denies any medical history (Acute) sepsis due to acute lyme - normal wbc on CSF. Symptoms with exposure history are consistent. Plan on 10 day course of po doxy. Answered questions about Lyme. Will follow, thank you.
[2018-11-05] MEDS: Doxycycline 100 MG CAPSULE PO (21:46)
[2018-11-05] MEDS: ALPRAZolam 0.5 MG Tablet 1 MG PO (21:46)
[2018-11-05] MEDS: MELATONIN 10 MG TABLET PO (21:46)
[2018-11-06 03:08] VITALS: PULSE 67
[2018-11-06 03:15] VITALS: BP 136/76; PULSE 65; RESP 18; TEMP 36.5; O2SAT 94
[2018-11-06] MEDS: dexAMETHasone 4 MG Tablet 16 MG PO ×2 (05:34→11:05)
[2018-11-06 07:00] VITALS: PULSE 87
[2018-11-06] MEDS: oxyCODONE 5 MG Tablet PO (08:45)
[2018-11-06] MEDS: Doxycycline 100 MG CAPSULE PO (08:48)
[2018-11-06 09:10] VITALS: BP 130/81; PULSE 82; RESP 14; TEMP 36.6; O2SAT 97
--- NOTE | 2018-11-06 13:31 | DCINST_ITS ---
- Discharge Diagnoses Current Active Problems: Current Active and Chronic Problems (Last Updated 11/05/18 @ 04:36 by Smooth Slaughter MD) Sepsis (Acute) Denies any medical history (Acute) You will use the following diet at home:: No restrictions Your food should be the consistency of: Regular Your liquids should be the consistency of: Regular/Thin Discharge Activity: Return to Normal Activity Allergies/Adverse Reactions: Allergies No Known Allergies Allergy (Verified 11/04/18 16:33) Medications to take at Discharge ALPRAZolam [Xanax] 1 mg PO TID PRN PRN 03/25/13 Doxycycline 100 mg PO BID #18 capsule 11/06/18 Oxycodone [Oxyir] 5 mg PO Q6H PRN PRN 2 Days #8 tablet 11/06/18 The following prescriptions were given: Doxycycline 100 mg PO BID #18 capsule Oxycodone [Oxyir] 5 mg PO Q6H PRN PRN 2 Days #8 tablet PRN Reason: Moderate Pain (4-6/10) Primary Care Physician: Wagner Temple MD [Primary Care Provider] - Please follow up with your Primary Care Physician in: 1-2 weeks Test Results: Test results from this visit will be discussed in further detail at your follow- up appointment, if applicable. Please Follow Up With: Bryce Walsh MD When: 2 weeks
--- NOTE | 2018-11-06 14:29 | PCM.DC.SUM ---
<Robbie Landa - Last Filed: 11/06/18 14:29> Discharge Date and Diagnosis Date of Admission: 11/04/18 Date of Discharge: 11/06/18 - Primary Discharge Diagnosis Active and Suspected Problems (Last Updated 11/05/18 @ 04:36 by Smooth Slaughter MD) Acute sepsis secondary to presumed Lyme disease Meningitis ruled out Back pain secondary to lumbar puncture Tick bites Erythema migrans Obesity History of migraine History of anxiety Hospital Course and Treatment Imaging Results: Imaging: CT/Brain/Head without Contrast IMPRESSION: No CT evidence of acute brain pathology. RAD/Fluoro Guided Lumbar Puncture IMPRESSION: Successful fluoroscopic-guided lumbar puncture. Consultations: Jillian-infectious disease Operations: None Procedures: - - Lumbar puncture Summary of Care Provided: Hospital Course: The patient is a 33 year old M with past medical history of anxiety, obesity, who presented the emergency room with complaints of diffuse body pain, headache, joint pain, weakness, and a rash on his chest and left arm. He reported being bitten by 2 ticks about 2 weeks prior. He was not sure how long the tick had been on him, he initially reported less than 24 hours. He had a temperature of 101 at home. In the emergency room a lumbar puncture was performed unsuccessfully. The patient developed severe back pain. The patient underwent a CT of the brain which was negative. In the emergency room he did have a fever, his T-max was 101.9 and he was tachycardic, lactic acid was negative. He was admitted to the PCU with concerns for Lyme disease versus meningitis. He was started on empiric therapy with vancomycin, Rocephin, acyclovir, doxycycline. The following day he underwent a lumbar puncture per interventional radiology successfully. He had ongoing headache that he described as being like prior migraines with flashers, photophobia, and nausea. The lumbar puncture did not demonstrate any evidence of meningitis, VZV testing is pending at this time, final culture is still pending however the Gram stain did not show any organisms. Fevers resolved, headache and neck pain improved. His rash on his left forearm was consistent with erythema migrans-annular, erythematous, mild central clearing. He also had a diffuse maculopapular rash, without significant warmth, pruritus, openings, across his chest. He was maintained overnight in the hospital on doxycycline. Infectious disease was consulted and recommended doxycycline. He will complete a 10-day course. Lyme titers are pending at this time, he can follow-up with his results with his PCP, and further work-up can be done at that time depending on the results. He was discharged home in stable condition. I advised him to follow-up with his PCP in 1 to 2 weeks, and follow-up with infectious disease in 2 weeks. This patient was seen by Robbie Landa PA-C under the supervision of Doctor Radha. [] - Physical Exam General: Alert, Oriented x3, Cooperative HEENT: Atraumatic, PERRLA, EOMI, Normocephalic Neck: Supple, No JVD, Negative Carotid Bruits Lungs: Clear to auscultation, Normal air movement Cardiovascular: Regular rate, No murmurs Abdomen: Bowel Sounds Present, Soft, Non Tender Extremities: No edema, Capillary Refill Less than 3 Seconds Skin: No rashes, No breakdown Musculoskeletal: No Tenderness to Palpation of Joints or Extremities Neurological: Cranial nerves II-XII grossly intact Psych/Mental Status: Normal Affect, Appropriate Vital Signs Temp Pulse Resp BP Pulse Ox 97.8 F 82 14 130/81 H 97 11/06/18 09:10 11/06/18 09:10 11/06/18 09:10 11/06/18 09:10 11/06/18 09:10 Oxygen Delivery Method Room Air Weight: 240 lb 15.444 oz Body Mass Index (BMI) 35.6 Intake and Output for Last 24 Hours 11/04/18 11/05/18 11/06/18 23:59 23:59 23:59 Intake Total 2742 / 2742 1762 / 1762 Output Total 500 / 500 Balance 2242 / 2242 1762 / 1762 Microbiology Past 72 Hours 11/05/18 10:02 Gram Stain - Final Csf, Spinal Fluid CSF Culture - Preliminary No growth in 24 hours. Final to follow. 11/04/18 17:20 Urine Culture - Preliminary Urine, Clean Catch Culture exhibits no growth. 11/05/18 Unknown Respiratory Panel (PCR) - Final Mucosa - Nose 11/04/18 17:26 Influenza Types A,B Direct FA ([facility]) - Final Mucosa - Nasopharyngeal Laboratory Tests Past 24 Hrs 11/05/18 20:20 Vancomycin Trough 9.0 Discharge Diet: No Restrictions Discharge Activity: Return to Normal Activity Home Medications: Medications to take at Discharge ALPRAZolam [Xanax] 1 mg PO TID PRN PRN 03/25/13 Doxycycline 100 mg PO BID #18 capsule 11/06/18 Oxycodone [Oxyir] 5 mg PO Q6H PRN PRN 2 Days #8 tablet 11/06/18 Following Prescrptions Were Given to Patient: Doxycycline 100 mg PO BID #18 capsule Oxycodone [Oxyir] 5 mg PO Q6H PRN PRN 2 Days #8 tablet PRN Reason: Moderate Pain (-11/30) Primary Care Physician: Wagner Temple MD [Primary Care Provider] - Please follow up with your Primary Care Physician in: 1-2 weeks Please Follow Up With: Bryce Walsh MD When: 2 weeks Please Follow Up With: Wganer Temple MD Disposition: Home Minutes spent on discharge:: 35 Patient Condition:: Stable Medical Necessity - Tobacco Use Smoking Status: Former smoker Meaningful Use Info Meaningful Use Diagnoses (Choose all that apply): None applicable <Zohaib Garcia F - Last Filed: 11/06/18 15:28> Hospital Course and Treatment Summary of Care Provided: The patient is a 33 year old M [] - Physical Exam Vital Signs Temp Pulse Resp BP Pulse Ox 97.8 F 82 14 130/81 H 97 11/06/18 09:10 11/06/18 09:10 11/06/18 09:10 11/06/18 09:10 11/06/18 09:10 Oxygen Delivery Method Room Air Weight: 240 lb 15.444 oz Body Mass Index (BMI) 35.6 Intake and Output for Last 24 Hours 11/04/18 11/05/18 11/06/18 23:59 23:59 23:59 Intake Total 2742 / 2742 1762 / 1762 Output Total 500 / 500 Balance 2242 / 2242 1762 / 1762 Microbiology Past 72 Hours 11/05/18 10:02 Gram Stain - Final Csf, Spinal Fluid CSF Culture - Preliminary No growth in 24 hours. Final to follow. 11/04/18 17:20 Urine Culture - Preliminary Urine, Clean Catch Culture exhibits no growth. 11/05/18 Unknown Respiratory Panel (PCR) - Final Mucosa - Nose 11/04/18 17:26 Influenza Types A,B Direct FA ([facility]) - Final Mucosa - Nasopharyngeal Laboratory Tests Past 24 Hrs 11/05/18 11/05/18 10:02 20:20 CSF Comment Reviewed Vancomycin Trough 9.0 Code Visit Addendum: Dr. Garcia I personally examined the patient and reviewed the chart. I agree with the above. 33-year-old male presenting with headache, joint pain, and fatigue after having to ticks on him 3 weeks ago. He was found to have a normal lumbar puncture and his Lyme titers are pending however given the time course and the rash on his left forearm will be discharged on Doxy p.o. twice daily for 10 days. Inpatient E&M: 19816 Disch Hosp
--- NOTE | 2018-11-06 14:37 | DS.PCM_ITS ---
<Robbie Landa - Last Filed: 11/06/18 14:29> Discharge Date and Diagnosis Date of Admission: 11/04/18 Date of Discharge: 11/06/18 - Primary Discharge Diagnosis Active and Suspected Problems (Last Updated 11/05/18 @ 04:36 by Smooth Slaughter MD) Acute sepsis secondary to presumed Lyme disease Meningitis ruled out Back pain secondary to lumbar puncture Tick bites Erythema migrans Obesity History of migraine History of anxiety Hospital Course and Treatment Imaging Results: Imaging: CT/Brain/Head without Contrast IMPRESSION: No CT evidence of acute brain pathology. RAD/Fluoro Guided Lumbar Puncture IMPRESSION: Successful fluoroscopic-guided lumbar puncture. Consultations: Jillian-infectious disease Operations: None Procedures: - - Lumbar puncture Summary of Care Provided: Hospital Course: The patient is a 33 year old M with past medical history of anxiety, obesity, who presented the emergency room with complaints of diffuse body pain, headache, joint pain, weakness, and a rash on his chest and left arm. He reported being bitten by 2 ticks about 2 weeks prior. He was not sure how long the tick had been on him, he initially reported less than 24 hours. He had a temperature of 101 at home. In the emergency room a lumbar puncture was performed u nsuccessfully. The patient developed severe back pain. The patient underwent a CT of the brain which was negative. In the emergency room he did have a fever, his T-max was 101.9 and he was tachycardic, lactic acid was negative. He was admitted to the PCU with concerns for Lyme disease versus meningitis. He was started on empiric therapy with vancomycin, Rocephin, acyclovir, doxycycline. The following day he underwent a lumbar puncture per interventional radiology successfully. He had ongoing headache that he described as being like prior migraines with flashers, photophobia, and nausea. The lumbar puncture did not demonstrate any evidence of meningitis, VZV testing is pending at this time, final culture is still pending however the Gram stain did not show any organisms. Fevers resolved, headache and neck pain improved. His rash on his left forearm was consistent with erythema migrans-annular, erythematous, mild central clearing. He also had a diffuse maculopapular rash, without significant warmth, pruritus, openings, across his chest. He was maintained overnight in the hospital on doxycycline. Infectious disease was consulted and recommended doxycycline. He will complete a 10-day course. Lyme titers are pending at this time, he can follow-up with his results with his PCP, and further work-up can be done at that time depending on the results. He was discharged home in stable condition. I advised him to follow-up with his PCP in 1 to 2 weeks, and follow- up with infectious disease in 2 weeks. This patient was seen by Robbie Landa PA-C under the supervision of Doctor Radha. [] - Physical Exam General: Alert, Oriented x3, Cooperative HEENT: Atraumatic, PERRLA, EOMI, Normocephalic Neck: Supple, No JVD, Negative Carotid Bruits Lungs: Clear to auscultation, Normal air movement Cardiovascular: Regular rate, No murmurs Abdomen: Bowel Sounds Present, Soft, Non Tender Extremities: No edema, Capillary Refill Less than 3 Seconds Skin: No rashes, No breakdown Musculoskeletal: No Tenderness to Palpation of Joints or Extremities Neurological: Cranial nerves II-XII grossly intact Psych/Mental Status: Normal Affect, Appropriate Vital Signs Temp Pulse Resp BP Pulse Ox 97.8 F 82 14 130/81 H 97 11/06/18 09:10 11/06/18 09:10 11/06/18 09:10 11/06/18 09:10 11/06/18 09:10 Oxygen Delivery Method Room Air Weight: 240 lb 15.444 oz Body Mass Index (BMI) 35.6 Intake and Output for Last 24 Hours 11/04/18 11/05/18 11/06/18 23:59 23:59 23:59 Intake Total 2742 / 2742 1762 / 1762 Output Total 500 / 500 Balance 2242 / 2242 1762 / 1762 Microbiology Past 72 Hours 11/05/18 10:02 Gram Stain - Final Csf, Spinal Fluid CSF Culture - Preliminary No growth in 24 hours. Final to follow. 11/04/18 17:20 Urine Culture - Preliminary Urine, Clean Catch Culture exhibits no growth. 11/05/18 Unknown Respiratory Panel (PCR) - Final Mucosa - Nose 11/04/18 17:26 Influenza Types A,B Direct FA ([facility]) - Final Mucosa - Nasopharyngeal Laboratory Tests Past 24 Hrs 11/05/18 20:20 Vancomycin Trough 9.0 Discharge Diet: No Restrictions Discharge Activity: Return to Normal Activity Home Medications: Medications to take at Discharge ALPRAZolam [Xanax] 1 mg PO TID PRN PRN 03/25/13 Doxycycline 100 mg PO BID #18 capsule 11/06/18 Oxycodone [Oxyir] 5 mg PO Q6H PRN PRN 2 Days #8 tablet 11/06/18 Following Prescrptions Were Given to Patient: Doxycycline 100 mg PO BID #18 capsule Oxycodone [Oxyir] 5 mg PO Q6H PRN PRN 2 Days #8 tablet PRN Reason: Moderate Pain (4-6) Primary Care Physician: Wagner Temple MD [Primary Care Provider] - Please follow up with your Primary Care Physician in: 1-2 weeks Please Follow Up With: Bryce Walsh MD When: 2 weeks Please Follow Up With: Wagner Temple MD Disposition: Home Minutes spent on discharge:: 35 Patient Condition:: Stable Medical Necessity - Tobacco Use Smoking Status: Former smoker Meaningful Use Info Meaningful Use Diagnoses (Choose all that apply): None applicable <Zohaib Garcia F - Last Filed: 11/06/18 15:28> Hospital Course and Treatment Summary of Care Provided: The patient is a 33 year old M [] - Physical Exam Vital Signs Temp Pulse Resp BP Pulse Ox 97.8 F 82 14 130/81 H 97 11/06/18 09:10 11/06/18 09:10 11/06/18 09:10 11/06/18 09:10 11/06/18 09:10 Oxygen Delivery Method Room Air Weight: 240 lb 15.444 oz Body Mass Index (BMI) 35.6 Intake and Output for Last 24 Hours 11/04/18 11/05/18 11/06/18 23:59 23:59 23:59 Intake Total 2742 / 2742 1762 / 1762 Output Total 500 / 500 Balance 2242 / 2242 1762 / 1762 Microbiology Past 72 Hours 11/05/18 10:02 Gram Stain - Final Csf, Spinal Fluid CSF Culture - Preliminary No growth in 24 hours. Final to follow. 11/04/18 17:20 Urine Culture - Preliminary Urine, Clean Catch Culture exhibits no growth. 11/05/18 Unknown Respiratory Panel (PCR) - Final Mucosa - Nose 05/15/19 17:26 Influenza Types A,B Direct FA ([facility]) - Final Mucosa - Nasopharyngeal Laboratory Tests Past 24 Hrs 11/05/18 11/05/18 10:02 20:20 CSF Comment Reviewed Vancomycin Trough 9.0 Code Visit Addendum: Dr. Garcia I personally examined the patient and reviewed the chart. I agree with the above. 33-year-old male presenting with headache, joint pain, and fatigue after having to ticks on him 3 weeks ago. He was found to have a normal lumbar puncture and his Lyme titers are pending however given the time course and the rash on his left forearm will be discharged on Doxy p.o. twice daily for 10 days. Inpatient E&M: 37042 Disch Hosp
[2018-11-06 14:54] LABS: Pathologist Review Reviewed
[2018-11-07 14:57] LABS: Lyme Scn Total Ab w/Rflx <0.91 ISR (0.00-0.90)
--- NOTE | 2018-11-09 14:45 | CASEMGMT ---
RN BEVERLY DC PHONE CALL DC DATE: 11/06/18 DC Disposition: Home LACE/STRATA: 04/25 Intro role of CM to patient. He was unable to speak as he was pulling into PCP's office. Pt states he is still not feeling well and made appt to be seen today. Rose LEWISN RN ACM
[2018-11-20 03:06] LABS: HSV 1 By PCR Negative (Negative)
[2018-11-20 12:27] LABS: Enterovirus By PCR Negative (Negative); HSV 2 By PCR Negative (Negative)
[2018-11-20 12:28] LABS: West Nile Virus Qual by PCR Negative (.)
== END 2018-11-06 14:30 | disposition home or self-care (01) | DRG 872 ==
LOC: ED 17:53 → MS3 21:00 → PCU 11-05 00:02 → MS3 11-05 10:03 → PCU 11-05 10:03
PROVIDERS: Admitting Provider Hospitalist; Emergency Provider Emergency Medicine; Family Provider Family Medicine; PCP Family Medicine; Referring Provider Hospitalist; Visit Provider Family Medicine
DX: A41.9 Sepsis, unspecified organism (principal); A69.20 Lyme disease, unspecified; T14.8XXA Other injury of unspecified body region, initial encounter; W57.XXXA Bitten or stung by nonvenomous insect and other nonvenomous arthropods, initial encounter; E66.9 Obesity, unspecified; Z68.35 Body mass index [BMI] 35.0-35.9, adult
CPT/HCPCS: 36415; 62270; 70450; 77003; 80048; 80053; 80202; 81001; 82945; 83605; 84157; 85025; 85610; 85652; 86140; 86618; 87040; 87070; 87086; 87205; 87498; 87529; 87633; 87798; 87804; 89050; 89051; 99284; J7030; J7040; J7050; A4216; J0696; J2405

== ENCOUNTER 2018-11-08 19:31 | Emergency (ER) | payer BC, SELFPAY ==
[2018-11-04 22:26] VITALS: BMI 35.6
[2018-11-08 19:32] VITALS: BP 144/92; PULSE 58; RESP 16; TEMP 36.8; O2SAT 95; BMI 31.2
[2018-11-08 19:42] VITALS: BP 144/92; PULSE 58; RESP 16; TEMP 36.8; O2SAT 95
--- NOTE | 2018-11-08 20:00 | ED.VISSUMM ---
- ER Visit Summary Date of Service: 11/08/18 Chief Complaint: Throbbing bitemporal headache History of Present Illness: The patient is a 33 M no significant past medical history other than a prior appendectomy. Patient was treated in the emergency department on Friday and admitted for rule out meningitis. He had LP attempted by the ER and then it needs to be done under fluoroscopy. Since the lumbar puncture he has had bitemporal throbbing headache is worse sitting up or walking. Associated photophobia. Reportedly his meningitis work-up was negative. He saw infectious disease who felt strongly that he had Lyme disease but that work-up is pending. He also had a negative CAT scan on his recent ER visit. Physical Examination: 33-year-old male no acute distress. Initial blood pressure 144/92. He does not look septic or toxic. He has his eyes covered the light does bother his eyes. Pupils round reactive light. No signs of trauma. No facial droop. Normal speech. Strength membranes. Neck nontender no meningismus. Trachea midline. Lungs clear to auscultation bilaterally. Heart regular rhythm no murmur rate about 60. Abdomen soft nontender. Normal bowel sounds no peritoneal signs. Normal bilateral porter baggage strength. Normal dorsi plantar flexion. Back exam unremarkable prior lumbar puncture site looks clean and dry. Neurologically he is awake and alert. No focal motor or sensory deficits. Normal motor strength and sensation. Normal speech. Test Results: None Emergency Department Course and Treatment: Because a positional headache that appears to have occurred post lumbar puncture. Will be treated with a liter normal saline with caffeine. IV Toradol, Zofran and morphine. Repeat exam at 2348 patient is doing better. Medically looks improved. Will give a second dose of morphine and discharged home. They were given home-going instructions. Treatment Plan: P.o. fluids. Caffeine. Increase activity as tolerated. Tylenol and Motrin for pain. Return if not improving or feeling worse for possible blood patch. Disposition: Discharge Impression: Acute cephalgia post lumbar puncture Currently being worked up for possible Lyme disease This note was generated with [employer] software. It may contain incorrect words, spelling, and punctuation that were not noted in review of the chart prior to signing ED Disposition - Plan for ED Patient: Referrals: Wagner Temple MD [Primary Care Provider] -
--- NOTE | 2018-11-08 20:04 | ED.DCSUM_ITS ---
- ER Visit Summary Date of Service: 11/08/18 Chief Complaint: Throbbing bitemporal headache History of Present Illness: The patient is a 33 M no significant past medical history other than a prior appendectomy. Patient was treated in the emergency department on Friday and admitted for rule out meningitis. He had LP attempted by the ER and then it needs to be done under fluoroscopy. Since the lumbar puncture he has had bitemporal throbbing headache is worse sitting up or walking. Associated photophobia. Reportedly his meningitis work-up was negative. He saw infectious disease who felt strongly that he had Lyme disease but that work-up is pending. He also had a negative CAT scan on his recent ER visit. Physical Examination: 33-year-old male no acute distress. Initial blood pressure 144/92. He does not look septic or toxic. He has his eyes covered the light does bother his eyes. Pupils round reactive light. No signs of trauma. No facial droop. Normal speech. Strength membranes. Neck nontender no meningismus. Trachea midline. Lungs clear to auscultation bilaterally. Heart regular rhythm no murmur rate about 60. Abdomen soft nontender. Normal bowel sounds no peritoneal signs. Normal bilateral business planning manager strength. Normal dorsi plantar flexion. Back exam unremarkable prior lumbar puncture site looks clean and dry. Neurologically he is awake and alert. No focal motor or sensory deficits. Normal motor strength and sensation. Normal speech. Test Results: None Emergency Department Course and Treatment: Because a positional headache that appears to have occurred post lumbar puncture. Will be treated with a liter normal saline with caffeine. IV Toradol, Zofran and morphine. Repeat exam at 2348 patient is doing better. Medically looks improved. Will give a second dose of morphine and discharged home. They were given home-going instructions. Treatment Plan: P.o. fluids. Caffeine. Increase activity as tolerated. Tylenol and Motrin for pain. Return if not improving or feeling worse for possible blood patch. Disposition: Discharge Impression: Acute cephalgia post lumbar puncture Currently being worked up for possible Lyme disease This note was generated with [employer] software. It may contain incorrect words, spelling, and punctuation that were not noted in review of the chart prior to signing ED Disposition - Plan for ED Patient: Referrals: Wagner Temple MD [Primary Care Provider] -
[2018-11-08] MEDS: Ondansetron 4 MG/2 ML Vial IV (20:08)
[2018-11-08] MEDS: Ketorolac 30 MG/ML Syringe IV (20:08)
[2018-11-08] MEDS: morphine 8 MG/ML Syringe 6 MG IV (20:08)
[2018-11-08 21:01] VITALS: BP 130/87; PULSE 60; RESP 16; TEMP 36.7; O2SAT 98
--- NOTE | 2018-11-08 23:50 | ED.DEP ---
ED Disposition - Plan for ED Patient: Instructions: ED Headache Post Spinal Tap No Patc, ED Lyme Disease Referrals: Wagner Temple MD [Primary Care Provider] - 1 Week if not improving Additional Instructions: Call follow-up with the infectious disease doctor. Tylenol Motrin for pain. Plenty of fluids and rest. Drinks several caffeinated beverages a day until the headache is gone. Return if feeling worse for the blood patch but that with be done between 8 AM and 3 PM during the day.
[2018-11-08 23:55] VITALS: BP 158/72; PULSE 61; RESP 18; O2SAT 95
[2018-11-08] MEDS: Morphine 4 MG/ML Syringe IV (23:55)
[2018-11-09 00:18] VITALS: BP 160/99; PULSE 60; RESP 15; O2SAT 98
== END 2018-11-09 00:19 | disposition home or self-care (01) ==
PROVIDERS: Emergency Provider Emergency Medicine; Family Provider Family Medicine; PCP Family Medicine
DX: G97.1 Other reaction to spinal and lumbar puncture (principal); Y84.4 Aspiration of fluid as the cause of abnormal reaction of the patient, or of later complication, without mention of misadventure at the time of the procedure; Y92.9 Unspecified place or not applicable; Z87.891 Personal history of nicotine dependence
CPT/HCPCS: 96365; 96375; 96376; 99283; J7030; J7040; A4216; J2405

== ENCOUNTER 2019-03-22 18:41 | Emergency (ER) | payer BC, SELFPAY ==
[2019-03-22 18:43] VITALS: BP 152/100; PULSE 83; RESP 19; TEMP 36.1; O2SAT 97; BMI 34.2
--- NOTE | 2019-03-22 18:56 | EKG12_ITS ---
Test Reason : CP Blood Pressure : / mmHG Vent. Rate : 071 BPM Atrial Rate : 071 BPM P-R Int : 150 ms QRS Dur : 096 ms QT Int : 374 ms P-R-T Axes : 045 048 022 degrees QTc Int : 406 ms Normal sinus rhythm with sinus arrhythmia Normal ECG Confirmed by GRANT HUTSON, CK ([id number]), marketing editor CHRISTO BOO ([id number]) on 03/24/2019 12:26:01 PM Referred By: CL Confirmed By:CK BURNS MD
--- NOTE | 2019-03-22 18:59 | RAD_ITS ---
STUDY: X-RAY CHEST REASON FOR EXAM: Male, 33 years old. Chest pain TECHNIQUE: Frontal view of the chest COMPARISON: None. FINDINGS: The lungs are clear. There are no pleural effusions. There is no pneumothorax. The heart is normal in size. The visualized osseous structures are within normal limits. RAD/Chest 1 View (Portable) IMPRESSION: No acute thoracic pathology. Electronically Signed: Iraj De La Garza, at 19:10 EDT Tel , Service support ,
[2019-03-22 19:06] VITALS: O2SAT 99
--- NOTE | 2019-03-22 19:07 | ED.RN ---
NO OLD EKGS IN MUSE
[2019-03-22] MEDS: Aspirin 81 MG TAB.CHEW 324 MG PO (19:09)
[2019-03-22 19:16] LABS: Absolute Lymphocyte Count 2.94 X10^3/uL (0.83-4.51); Absolute Neutrophil Count 4.7 X10^3/uL (2.0-7.7); Basophil# 0.04 X10^3/uL; Basophil% 0.5 % (0-1); Eosinophil# 0.16 X10^3/uL; Eosinophils% 1.9 % (0-5); Hematocrit 45.6 % (40-54); Hemoglobin 15.1 g/dL (13.0-16.5); Lymphocyte # 2.94 X10^3/ul (4.0); Lymphocyte % 34.7 % (19-41); Mean Corp Hgb Conc 33.1 g/dL (32-36); Mean Corpuscular Hgb 30.3 pg (27.0-32.0); Mean Corpuscular Volume 91.6 fL (80-94); Mean Platelet Vol. 10.5 fl (6.2-12.0); Monocyte# 0.64 X10^3/uL; Monocyte% 7.5 % (0-10); NRBC Flagged by Analyzer 0 % (0-5); Neutrophil # 4.67 X10^3/uL (2.7-7.7); Platelet Count 293 K/mm3 (150-450); RBC Distribution Width CV 12.2 % (11.6-14.6); RBC Distribution Width SD 41.1 fl (35.1-43.9); Red Blood Count 4.98 M/mm3 (4.6-6.2); White Blood Count 8.5 K/mm3 (4.4-11.0)
[2019-03-22 19:33] LABS: D-Dimer Quantitative (DVT/PE) 0.64 FEU/ug/m (0.27-0.49)
--- NOTE | 2019-03-22 19:37 | ED.RN ---
lab called with critical lab results. d dimer 0.64. Dr. Sotelo made aware no new orders at this time
[2019-03-22 19:38] LABS: Anion Gap 4 (5-15); BUN 19 mg/dL (7-18); BUN/Creat Ratio 18.4 RATIO (10-20); Calcium,Total 8.5 mg/dL (8.5-10.1); Chloride 108 mmol/L (98-107); Creatinine, Serum 1.03 mg/dL (0.70-1.30); EST Glomerular Filtration Rate 87 mL/min (>60); Est Glom Filt Rate - Afr Amer 105 mL/min (>60); Glucose 122 mg/dL (74-106); Potassium 3.4 mmol/L (3.5-5.1); Sodium Level 142 mmol/L (136-145)
--- NOTE | 2019-03-22 19:38 | CT_ITS ---
STUDY: CTA CHEST REASON FOR EXAM: Male, 33 years old. Chest pain RADIATION DOSAGE (If Supplied By Facility): CTDIvol = ( 11.48 ) mGy, DLP = ( 542.12 ) mGycm TECHNIQUE: The examination was performed with the intravenous administration of IV 100mL [id number]-370 100ML. Post-processing of the angiographic images was performed, with multiplanar reformation and 3D reconstruction. Individualized dose optimization techniques were used for this CT. COMPARISON: None. FINDINGS: Normal enhancement of the main pulmonary artery and right and left pulmonary arteries. Normal enhancement of the bilateral peripheral pulmonary arteries. There is no demonstrated pulmonary embolism. Normal thoracic aorta and visualized great vessels. There is no demonstrated aortic dissection. Normal heart and pericardium. Normal mediastinum. Normal hilar regions. Normal visualized trachea and bronchi. The lungs are well expanded. Normal pulmonary parenchyma. Normal pleura. Normal chest wall structures. Normal osseous structures. There is diffuse fatty infiltration of the liver. CT/CTA Chest W/WO Contrast IMPRESSION: Normal CTA chest examination, without a demonstrated pulmonary embolism or arterial dissection. Fatty liver. Electronically Signed: Iraj De La Garza, at 20:11 EDT Tel , Service support ,
[2019-03-22 19:43] VITALS: BP 136/87; PULSE 77; RESP 20; O2SAT 96
--- NOTE | 2019-03-22 20:45 | ED.VISSUMM ---
- ER Visit Summary Date of Service: 03/22/19 Chief Complaint: Chest pain History of Present Illness: The patient is a 33 M with chest pain that started at 8 AM this morning. It has been constant. It feels like a burning pain. Worse with breathing and certain positions. He never had it before. The pain radiates to his back. He also feels tired. History of smoking. Physical Examination: Afebrile and vital signs unremarkable except blood pressure 152/100. No acute distress. Heart regular. Lungs clear. Skin normal. Extremities normal. Test Results: EKG showed sinus rhythm at a rate of 71. No sign of acute ischemia or infarction pattern. CBC normal. BMP unremarkable. Troponin normal. D-dimer slightly elevated. Chest x-ray normal. CTA normal. No PE or dissection. Emergency Department Course and Treatment: Patient presents with chest pain. It sounds atypical. I have low suspicion for ACS. His work-up was unremarkable except for an elevated d-dimer. CTA was done. It showed fatty liver but no evidence of PE or dissection. He is appropriate for outpatient follow-up. He will be discharged. Treatment Plan: As above Disposition: Discharged Impression: 1. Chest pain This note was generated with [employer] dictation software. It may contain incorrect words, spelling, and punctuation that were not noted in review of the chart prior to signing ED Disposition - Plan for ED Patient: Referrals: Benoit Jenkins PA [Primary Care Provider] -
--- NOTE | 2019-03-22 20:47 | ED.DEP ---
ED Disposition - Plan for ED Patient: Instructions: CHEST PAIN, Uncertain Cause Referrals: Benoit Jenkins PA [Primary Care Provider] -
[2019-03-22 20:55] VITALS: PULSE 89; RESP 19; O2SAT 98
--- NOTE | 2019-03-22 20:56 | ED.RN ---
PT GIVEN WRITTEN AND VERBAL DISCHARGE INSTRUCTIONS. PT VERBALIZES UNDERSTANDING AND DENIES ANY FURTHER QUESTIONS AND DENIES ANY FURTHER QUESTIONS. IV D/C AND COVERED WITH 2X2 GAUZE AND PAPER TAPE. DRESSES SELF AND AMBULATES OUT OF DEPT WITH .
== END 2019-03-22 20:59 | disposition home or self-care (01) ==
LOC: ED 19:18
PROVIDERS: Emergency Provider Emergency Medicine; Family Provider Family Medicine; PCP Physician Assistant
DX: R07.9 Chest pain, unspecified (principal); Z72.0 Tobacco use
CPT/HCPCS: 71045; 71275; 80048; 84484; 85025; 85379; 93005; 99285; Q9967; A4216

== ENCOUNTER 2019-07-13 14:19 | Emergency (ER) | payer BC, SELFPAY ==
[2019-07-13 14:21] VITALS: BP 148/89; PULSE 111; RESP 18; TEMP 36.8; O2SAT 94; BMI 35.4
--- NOTE | 2019-07-13 14:45 | CT_ITS ---
STUDY: CT SOFT TISSUE NECK WITH CONTRAST REASON FOR EXAM: Male, 34 years old. SORE THROAT/SWELLING/FEVER RADIATION DOSAGE (If Supplied By Facility): CTDIvol = ( 20.63 ) mGy, DLP = ( 576.88 ) mGycm TECHNIQUE: The patient was scanned in a multi-detector CT scanner. High resolution transaxial imaging was performed following intravenous administration of IV 100mL Isovue-300. Sagittal and coronal images were reconstructed. Individualized dose optimization techniques were used for this CT. COMPARISON: None. FINDINGS: Normal bilateral parotid glands. Normal bilateral b2b appointment setter spaces. Normal bilateral parapharyngeal spaces. Normal bilateral carotid spaces. Normal bilateral sublingual and submandibular glands and spaces. Normal visualized nasopharynx. Normal retropharyngeal space. Normal perivertebral space. There is diffuse enlargement of the bilateral faucial tonsils with increased vascularity suggestive of inflammatory changes. Minimal inhomogeneity in the deep portion of both tonsils although no anibal abscess or fluid collection is seen at this time.. The visualized tongue, tongue base and oropharynx are normal. There are minimally enlarged lymph nodes of the neck, with preservation of normal rupinder architecture, consistent with a reactive lymph hyperplasia. There is no demonstrated solid or cystic mass lesion. There is no abnormal contrast enhancement. Normal epiglottis, bilateral vallecula and hypopharynx. The pre-epiglottic and paraglottic adipose spaces are normal. Normal visualized bilateral piriform sinuses, aryepiglottic folds, vocal cords, and arytenoid-cricoid articulations. Normal subglottic trachea. Normal bilateral lobes of the thyroid gland. Normal visualized pulmonary apices. Normal visualized paranasal sinuses. Normal visualized cervical spine. CT/Soft Tissue Neck WITH Contrast IMPRESSION: Diffuse enlargement of the bilateral faucial tonsils with increased vascularity and slight inhomogeneity of both tonsils although no anibal abscess or fluid collection is seen. Electronically Signed: Martín Barrera, at 15:52 EST , Service support ,
[2019-07-13] MEDS: Ondansetron 4 MG/2 ML Vial IV (14:53)
[2019-07-13] MEDS: Ketorolac 30 MG/ML Syringe IV (14:53)
[2019-07-13] MEDS: dexAMETHasone 10 MG/ML Vial IV (14:54)
[2019-07-13] MEDS: Morphine 4 MG/ML Syringe IV (14:54)
[2019-07-13] MEDS: 0.9% Normal Saline 1,000 ML 1000 ML IV ×2 (14:55→16:03)
[2019-07-13 15:03] LABS: Absolute Lymphocyte Count 1.82 X10^3/uL (0.83-4.51); Absolute Neutrophil Count 21.4 X10^3/uL (2.0-7.7); Basophil# 0.04 X10^3/uL; Basophil% 0.2 % (0-1); Eosinophil# 0.03 X10^3/uL; Eosinophils% 0.1 % (0-5); Hematocrit 47.6 % (40-54); Hemoglobin 15.8 g/dL (13.0-16.5); Lymphocyte # 1.82 X10^3/ul (4.0); Mean Corp Hgb Conc 33.2 g/dL (32-36); Mean Corpuscular Hgb 30.3 pg (27.0-32.0); Mean Corpuscular Volume 91.4 fL (80-94); Mean Platelet Vol. 10.1 fl (6.2-12.0); Monocyte# 2.32 X10^3/uL; NRBC Flagged by Analyzer 0 % (0-5); Neutrophil # 21.44 X10^3/uL (2.7-7.7); POSITIVE DIFFERENTIAL YES; Platelet Count 239 K/mm3 (150-450); RBC Distribution Width CV 12.5 % (11.6-14.6); RBC Distribution Width SD 41.6 fl (35.1-43.9); Red Blood Count 5.21 M/mm3 (4.6-6.2); White Blood Count 25.8 K/mm3 (4.4-11.0)
[2019-07-13 15:09] LABS: Differential Indicated SCAN CRITERIA MET
[2019-07-13 15:14] LABS: Anion Gap 4 (5-15); BUN 15 mg/dL (7-18); BUN/Creat Ratio 11.8 RATIO (10-20); Chloride 106 mmol/L (98-107); Creatinine, Serum 1.27 mg/dL (0.70-1.30); EST Glomerular Filtration Rate 68 mL/min (>60); Est Glom Filt Rate - Afr Amer 83 mL/min (>60); Estimated Creatinine Clearance 80.41 ml/min; Glucose 95 mg/dL (74-106); Potassium 3.8 mmol/L (3.5-5.1); Sodium Level 139 mmol/L (136-145)
[2019-07-13 15:21] LABS: Lactic Acid 0.8 mmol/L (0.4-1.9)
[2019-07-13 15:36] LABS: Differential Comment SCANNED
--- NOTE | 2019-07-13 16:33 | ED.VISSUMM ---
- ER Visit Summary Date of Service: 07/13/19 Chief Complaint: Sore throat History of Present Illness: The patient is a [address] Temple. He reports he is sore throat that began 2 days ago. He describes a sharp pain is 10-10 severity. Is worsened by swallowing. Is immediately relieved by ibuprofen. He reports he had a fever to 102 degrees. He complains of chills and cold sweats. He denies any cough. Reports that he does feel short of breath. This is worse when he lays down. He has been nauseated and vomited 5-6 times. No blood in his emesis. He has diffuse myalgias. He reports he has a slight headache and generalized weakness. Physical Examination: Vitals: 98.2, 140/89, 111, 18, 94% room air which is not hypoxic. General: Well-nourished and well-developed. Head: Normocephalic atraumatic. Neck: Supple, 2+ tonsillar enlargement bilaterally with erythema. No appreciable exudate. He has no peritonsillar abscess. No uvular shift. He does have tender anterior cervical lymphadenopathy. Does have pain with movement of his trachea.. Cardiovascular: Tachycardic regular rhythm. No murmurs. Respiratory: No respiratory distress. Clear to auscultation bilaterally. Abdominal: Soft, nontender, nondistended, normal bowel sounds. No guarding, rebound, or peritoneal signs. Back: Nontender. Extremities: Nontender, no edema. Skin: Normal color, no rash. Neurologic: Alert and oriented ?3. Cranial nerves II through XII are intact. Normal strength and sensation. Psych: Normal affect. Test Results: CBC is marked for white count 25.8, 7 neutrophils 83, lymphs at 7. Chem-7 is normal. Lactic acid is 0.8. Strep is pending. Clinical Impression(s) from Imaging Studies Soft Tissue Neck CT 07/13/19 14:45 IMPRESSION: Diffuse enlargement of the bilateral faucial tonsils with increased vascularity and slight inhomogeneity of both tonsils although no anibal abscess or fluid collection is seen. Electronically Signed: Martín Barrera, at 15:52 EST , Service support , Emergency Department Course and Treatment: Patient had an IV placed. He was given Toradol and morphine IV. He was given Unasyn and dexamethasone IV. He was given 2 L of normal saline. He is resting more comfortably. Treatment Plan: Patient will be discharged with Augmentin, prednisone, naproxen, and 12 Percocet. Instructed to follow-up with Dr. Espinal in 1 week for another exam. Return to the emergency department for any worsening symptoms. Disposition: To home in improved and stable condition. Impression: 1 1. Tonsillitis. This note was generated with Hyp[employer] 8ation software. It may contain incorrect words, spelling, and punctuation that were not noted in review of the chart prior to signing ED Disposition - Plan for ED Patient: Disposition: Home or Assisted Living Instructions: ED Tonsillitis Prescriptions: Amox/Clavulanate Tablet [Augmentin Tablet] 875 mg PO Q12H #20 tab Prescription Printed Prednisone [Deltasone] 40 mg PO DAILY #10 tab Prescription Printed Naproxen [Naprosyn] 500 mg PO BID #14 tab Prescription Printed Oxycodone HCl/Acetaminophen [Percocet 5/325] 1 tab PO Q6H PRN PRN 3 Days #12 tab PRN Reason: Pain Prescription Printed Referrals: Sebastián Espinal MD [STAFF PHYSICIAN] - 1 Week Benoit Jenkins PA [Primary Care Provider] - 3-5 Days if not improving
[2019-07-13 16:53] VITALS: BP 136/74; PULSE 82; RESP 17; O2SAT 96
[2019-07-15 09:01] LABS: Pathologist Review Reviewed
== END 2019-07-13 16:55 | disposition home or self-care (01) ==
PROVIDERS: Emergency Provider Emergency Medicine; PCP Physician Assistant
DX: J03.90 Acute tonsillitis, unspecified (principal); R50.9 Fever, unspecified; R11.2 Nausea with vomiting, unspecified; R51 Headache; R06.02 Shortness of breath; M79.10 Myalgia, unspecified site
CPT/HCPCS: 70491; 80048; 83605; 85025; 87040; 87880; 96361; 96365; 96375; 99284; J7030; J7050; Q9967; A4216; J0295; J2405

== ENCOUNTER → 2020-03-28 09:05 | Outpatient (CLI) | payer BC, SELFPAY | PROVIDERS: PCP Physician Assistant; Referring Provider Nurse Practitioner Family; Visit Provider Nurse Practitioner Family | DX: Z20.828 Contact with and (suspected) exposure to other viral communicable diseases (principal); R05 Cough | CPT/HCPCS: 87635; C9803; U0003 ==

== ENCOUNTER 2023-05-25 15:13 | Emergency (ER) | payer BC, SELFPAY ==
[2023-05-25 15:16] VITALS: BP 173/114; PULSE 99; RESP 20; TEMP 36.6; O2SAT 95
--- NOTE | 2023-05-25 15:25 | RAD_ITS ---
EXAM: XR RIGHT FOOT COMPLETE, 3 OR MORE VIEWS CLINICAL INDICATION: Trauma TECHNIQUE: Frontal, lateral and oblique views of the right foot. COMPARISON: No relevant prior studies available. FINDINGS: BONES/JOINTS: Unremarkable. No acute fracture. No subluxation. Normal alignment. Preservation of the joint space. No sclerotic or destructive changes observed. SOFT TISSUES: Unremarkable. No soft tissue swelling or gas. No radiopaque foreign body. RAD/Foot min 3 Views IMPRESSION: Negative right foot x-rays. Electronically Signed: Jairo Ramesh MD at 16:00 EST ,
--- NOTE | 2023-05-25 15:25 | ED.VIS.LOWEX ---
HPI History of Present Illness Chief Complaint: Lower Extremity Injury Narrative Narrative: 37-year-old male who denies significant past medical history except for remote fracture of his right ankle presents with injury to his right ankle that he sustained prior to arrival. He states that he was walking down a stair, and suffered an inversion injury of his right ankle. While he fell, he did not hit his head. There was no loss of consciousness. He now complains of swelling on the lateral aspect of his right ankle and mild swelling on his right foot laterally. He took a Percocet that he had leftover from a kidney stone a few months ago. He denies other injury but is having difficulty ambulating and had to use crutches that he already had. He states he heard a snap as he stepped down. [facility] Medical History Denies any medical history Allergy/AdvReac Type Severity Reaction Status Date / Time shellfish derived Allergy Nausea/Vom/ Verified 05/25/23 15:15 Diarrhea Social History Smoking Status: Former smoker ROS ROS ED ROS Narrative Constitutional: No fever, no chills. HEENT: No sore throat. No neck pain. No loss of vision. No rhinorrhea. Cardiovascular: No chest pain. No palpitations. No pedal edema. Respiratory: No cough, no shortness of breath. Abdominal: No abdominal pain. No nausea. No vomiting. Genitourinary: No dysuria. No hematuria. Musculoskeletal: No myalgias. Right ankle pain and swelling, right lateral foot pain and swelling as well. Neurologic: No headaches. No dizziness. No lightheadedness. Skin: No rash. No change in color. Psychiatric: No depression. No anxiety. EXAM Physical Exam Narrative Exam Narrative: Afebrile. Vital signs noted. HEENT: Normocephalic. Atraumatic. PERRL, EOMI. Neck soft and supple. No point tenderness or step off. Cardiovascular: Regular rate and rhythm. No murmurs, rubs, or gallops appreciated. Respiratory: No tachypnea. Lungs clear to auscultation bilaterally. Gastrointestinal: Abdomen soft, nontender, with normoactive bowel sounds. No rebound or guarding. Neurological: Awake. Alert. Nonfocal, nonlateralizing. Skin: No rash. Normal color. No pallor. Musculoskeletal: No pedal edema. Range of motion of toes and foot limited secondary to pain. Positive swelling right lateral malleolus and along the right foot along the tarsal bones. Palpable dorsalis pedis pulse. Good capillary refill. No palpable Achilles tendon deficit. No proximal fibular head tenderness. Flexion and extension at right knee intact. Const Vital Signs: 05/25/23 15:16 Temperature 97.8 F Temperature Source Temporal Pulse Rate 99 Respiratory Rate 20 H Blood Pressure 173/114 H Blood Pressure Mean 133 Pulse Ox 95 Oxygen Delivery Method Room Air MDM MDM MDM Narrative Medical decision making narrative: Concern is for fracture versus sprain in the differential. I fear he may have more of a distal fibular fracture than an actual tarsal bone fracture given the amount of swelling on examination. X-rays were obtained and he was given additional Percocet here in the emergency department. X-rays were obtained of the right foot and ankle in 3 views each. On my independent interpretation there is no evidence of fracture of the right ankle or of the right foot. I reviewed the radiology report which confirms my independent interpretation. He has no tenderness in the fibular head area so I do not feel tibia and fibula x-rays are indicated. Given the soft tissue swelling noted on examination, I do feel it is more of a sprain. I offered to write him a prescription for high-strength anti-inflammatories but he declined and will take [id number] analgesics. 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 Mallory Hankins in follow-up. He already has his own crutches so he will be placed in an Aircast splint. He will continue ice and elevation at home and not be weightbearing until cleared by podiatry. I feel he be discharged safely home with follow-up. Return instructions reviewed. Disposition is discharged home, in stable condition. History & Record Review Discussion w/independent historian: Patient Additional record(s) reviewed:: Prior ED visit (Noncontributory to current chief complaint.) Lab Data Attestation: I reviewed the patient's lab results. Radiography Diagnostic Testing: Clinical Impression(s) from Imaging Studies Foot X-Ray 05/25/23 15:25 IMPRESSION: Negative right foot x-rays. Electronically Signed: Jairo Ramesh MD at 16:00 EST , Ankle X-Ray 05/25/23 15:28 IMPRESSION: Soft tissue swelling overlying the right lateral malleolus but no acute fracture or dislocation of the right ankle. Electronically Signed: Jairo Ramesh MD at 16:01 EST , Discharge Plan Triage Chief Complaint: Lower Extremity Injury ED Provider: Jairo Rucker Dx/Rx/DC Orders Clinical Impression: Right ankle sprain, Foot sprain Instructions: ED Sprain Ankle W X Ray, ED Foot Sprain Primary Care Provider: Wagner Temple Referrals: Kwadwo Andersen DPM [Med Staff - Active Staff] - 1 Week Benoit Jenkins, OPAL [Non-Staff] - Disposition Disposition: Home, Self Care
--- NOTE | 2023-05-25 15:28 | RAD_ITS ---
EXAM: XR RIGHT ANKLE COMPLETE, 3 OR MORE VIEWS CLINICAL INDICATION: Trauma TECHNIQUE: Frontal, lateral and oblique views of the right ankle. COMPARISON: No relevant prior studies available. FINDINGS: BONES/JOINTS: Unremarkable. No acute fracture. No subluxation. Normal alignment. Preservation of the joint space. No sclerotic or destructive changes observed. SOFT TISSUES: Soft tissue swelling overlying the right lateral malleolus. No radiopaque foreign body. RAD/Ankle min 3 Views IMPRESSION: Soft tissue swelling overlying the right lateral malleolus but no acute fracture or dislocation of the right ankle. Electronically Signed: Jairo Ramesh MD at 16:01 EST ,
[2023-05-25] MEDS: Oxycodone/Apap 5/325 Tablet PO (15:43)
[2023-05-25 15:45] VITALS: BMI 35.7
[2023-05-25 16:49] VITALS: PULSE 78; RESP 18; O2SAT 100
== END 2023-05-25 16:50 | disposition home or self-care (01) ==
PROVIDERS: Emergency Provider Emergency Medicine; PCP Family Medicine; Visit Provider Emergency Medicine
DX: S93.401A Sprain of unspecified ligament of right ankle, initial encounter (principal); S93.601A Unspecified sprain of right foot, initial encounter; W10.9XXA Fall (on) (from) unspecified stairs and steps, initial encounter; Z87.891 Personal history of nicotine dependence
CPT/HCPCS: 73610; 73630; 99283

== ENCOUNTER 2024-08-28 13:33 | Emergency (ER) | payer BC, SELFPAY ==
[2024-08-28 13:34] VITALS: BP 181/119; PULSE 104; RESP 17; TEMP 36.4; O2SAT 99; BMI 36.9
--- NOTE | 2024-08-28 14:15 | EDS_ITS ---
HPI HPI - URI History of Present Illness Chief Complaint: Ear Problem Detail of Chief Complaint: Decreased hearing left ear Informant: patient Narrative Narrative: Patient presents with decreased hearing in his left ear that he noticed this morning when he awoke. Patient states that he felt fine when he went to bed last night. Patient states that he has not had a recent illness although 2 weeks ago he had strep throat and 2 weeks before that he had the flu and pneumonia. Patient was seen at urgent care today and referred to the ER for evaluation. Patient also concerned about a stroke in his ear. His initial blood pressure urgent care was 120 systolic but he is very anxious and nervous after he was told he needed come to the ER and they noted an elevated blood pressure in the emergency department. Patient states he typically gets nervous around doctors. ROS ROS ED Review of Systems ROS Unobtainable: other Constitutional Constitutional ED: Reports lethargy; Denies chills, fever(s), sweats or weight loss Eyes Eyes: Denies blurry vision, change in vision or diplopia ENT ENT ED: Denies rhinorrhea or sore throat Cardiovascular Cardiovascular: Denies chest pain, orthopnea or racing heartbeat Respiratory/Chest Respiratory/Chest: Denies cough, dyspnea, dyspnea on exertion, orthopnea or sputum Gastrointestinal Gastrointestinal: Denies abdominal pain, diarrhea, nausea or vomiting Genitourinary Genitourinary ED: Denies dysuria, hematuria or urinary frequency Musculoskeletal Musculoskeletal: Denies arthralgias, back pain, myalgias or neck pain Integumentary Denies abscess, Abrasions or rash Neurologic Neurologic: Denies headache(s) or weakness Psychiatric Psychiatric: Denies anxiety, depression or suicidal thoughts Endocrine Endocrinology: Denies polydipsia, polyphagia or polyuria Hematologic/Lymphatic Hematologic/Lymphatic: Denies easy bleeding, easy bruising or lymphadenopathy Allergic/Immunologic Allergic/Immunologic ED: Denies mouth swelling, tongue swelling or urticaria [facility] Medical History Denies any medical history Home Medications ?Medication ?Instructions ?Recorded ?Last Taken ?Type prednisone 10 mg tablet 10 mg PO DAILY #30 tabs 02/14 Unknown Rx prednisone 50 mg tablet 50 mg PO DAILY #4 tabs 08/28 Unknown Rx Allergy/AdvReac Type Severity Reaction Status Date / Time shellfish derived Allergy Nausea/Vom/ Verified 08/28/24 13:38 Diarrhea Social History Smoking Status: Former smoker EXAM Physical Exam Const Vital Signs: 08/28/24 13:34 Temperature 97.5 F L Temperature Source Temporal Pulse Rate 104 H Respiratory Rate 17 Blood Pressure 181/119 H Blood Pressure Mean 139 Pulse Ox 99 Oxygen Delivery Method Room Air Positive well nourished and well developed General Appearance ED: well developed and NAD HEENT Reports TM's clear and moist mucous membranes normocephalic and atraumatic; Negative for trauma or tenderness Tympanic Membrane ED: Yes TM's clear Eyes PERRL and EOMs intact bilaterally Eyes Narrative: TMs are clear bilaterally. No evidence of infection. Slight bulging of the tympanic membranes bilaterally with some serous fluid right greater than left. Tympanic membranes appear intact. General Eye ED: Negative for pale conjunctiva or scleral icterus Neck no lymphadenopathy, supple and no JVD General: Negative for tenderness Chest Wall inspection of chest normal and palpation of chest normal Chest: Negative for tenderness Resp normal respiratory effort and clear to auscultation bilaterally Effort and Inspection: Negative for respiratory distress or pain with movement Auscultation: Negative for rhonchi, wheezes or diminished lung sounds Cardio regular rate, regular rhythm, S1 normal heart sound, S2 normal heart sound and no murmurs Peripheral Pulses: pulses 2+ throughout GI normal to inspection, nondistended, normoactive bowel sounds, soft to palpation, non-tender, non-distended and no masses Back/Spine no CVA tenderness and no thoracic nor lumbar tenderness Extremity normal to inspection General Extremety ED: Negative for edema General Extremity: Negative for edema Neuro oriented x3, CN's II-XII intact bilaterally, no sensory deficits noted and gait normal Sensorium / Orientation: awake, alert, oriented to person, oriented to place and oriented to time Motor Exam: strength 5/5 throughout and strength abnormal Psych mental status grossly normal Skin no rashes or lesions noted and no wounds MDM MDM MDM Narrative Medical decision making narrative: Patient presents with sudden hearing loss in the left ear. No signs of infection on exam. No trauma. I did discuss case with ENT on-call Dr. Eliu Nunes who thinks patient may have acute sensorineural hearing loss. Basically this is treated with steroids and treated as a essentially a Daley's palsy. He will see patient in follow-up in the office and if symptoms do not resolve may require further imaging such as possibly MRI. Patient comfortable with plan. Discharge Plan Triage Chief Complaint: Ear Problem ED Provider: Sloane Chandler Dx/Rx/DC Orders Clinical Impression: Sensorineural hearing loss Instructions: Understanding Hearing Loss Prescriptions: New prednisone 50 mg tablet 50 mg PO DAILY Qty: 4 0RF prednisone 10 mg tablet 10 mg PO DAILY Qty: 30 0RF Rx Instructions: 4 p.o. daily x 3 days, 3 p.o. daily x 3 days, 2 p.o. daily x 3 days, 1 p.o. daily x 3 days Primary Care Provider: Wagner Temple Referrals: Demond Nunes MD [Med Staff - Courtesy Staff] - 1 Week Wagner Temple MD [Primary Care Provider] - Activity Restrictions/Additional Instructions: You are being treated for sensorineural hearing loss. please follow up with ENT Print Language: Danish
[2024-08-28] MEDS: predniSONE 20 MG Tablet 60 MG PO (14:47)
== END 2024-08-28 14:52 | disposition home or self-care (01) ==
LOC: ED 14:26
PROVIDERS: Emergency Provider Emergency Medicine; PCP Family Medicine; Visit Provider Emergency Medicine
DX: H90.42 Sensorineural hearing loss, unilateral, left ear, with unrestricted hearing on the contralateral side (principal); Z87.891 Personal history of nicotine dependence
CPT/HCPCS: 99282